=== PATIENT | female | born 1980 | race Caucasian/White ===

== ENCOUNTER 2022-04-17 08:47 | Emergency (ER) | payer OTHER, BC, SELFPAY ==
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
--- NOTE | ~2022-04-17 | CT_ITS ---
Noncontrast CT scan of the cervical spine Technique: Multiple contiguous axial [address] images of the cervical spine were obtained and rec onstructed in 2D sagittal and coronal planes on the acquisition scanner. Dose reduction technique was used on this scan by utilizing automated exposure control, adjustment of the mA and/or kV according to patient size. Clinical History: Pain Findings: No fractures or dislocations. Unremarkable visualized bony structures. The intervertebral disc spaces are preserved. No prevertebral soft tissue swelling. Impression: No fracture or subluxation of the cervical spine. Reviewed, dictated and finalized at location M. RUNNER Impression: No fracture or subluxation of the cervical spine.
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
[2022-04-17 08:52] VITALS: BP 154/89; PULSE 72; RESP 16; TEMP 37; O2SAT 98
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
[2022-04-17] MEDS: ACETAMINOPHEN 500 MG TABLET 1000 MG PO (10:23)
== END 2022-04-17 10:30 | disposition home or self-care (01) ==
PROVIDERS: Emergency Provider Physician Assistant; PCP Physician Assistant
DX: S16.1XXA Strain of muscle, fascia and tendon at neck level, initial encounter (principal); S63.601A Unspecified sprain of right thumb, initial encounter; F17.200 Nicotine dependence, unspecified, uncomplicated; V43.52XA Car driver injured in collision with other type car in traffic accident, initial encounter
CPT/HCPCS: 70450; 72125; 73090; 73130; 99284; A9270

== ENCOUNTER 2022-08-19 07:24 | Emergency (ER) | payer BC, SELFPAY ==
--- NOTE | ~2022-08-19 | CT_ITS ---
EXAMINATION: CT abdomen pelvis w con DATE: 08/19/2022 08:50 INDICATION: Right lower quadrant abdominal pain. TECHNIQUE: Computed tomography (CT) of the abdomen and pelvis was performed with 100 mL Omnipaque 350 intravenous contrast. Automated exposure control and iterative reconstruction technique were employe d. The dose-length product was 826.81 mGy-cm. COMPARISON: None. FINDINGS: The visualized portions of the lung bases demonstrate mild dependent atelectasis. No pleura l effusion. The heart size is normal. No pericardial effusion. There is a 10 mm cyst in the liver. Th e gallbladder, spleen, pancreas, and adrenal glands are normal. There is a delayed right-sided contra st nephrogram. There is mild right hydronephrosis and hydroureter. There is a 4 mm stone at right ure terovesicular junction. There is a 5 mm cyst in left kidney. There are no dilated loops of bowel. The appendix is normal. There are no pathologically enlarged lymph nodes. There is no free intraperitone al fluid. There is mild thoracolumbar spondylosis. IMPRESSION: 1. 4 mm stone at right ureterovesicular junction with mild right hydronephrosis and hydroureter. Reviewed, dictated and finalized at location A.
[2022-08-19 07:36] VITALS: BP 158/75; PULSE 76; RESP 16; TEMP 37.1; O2SAT 99
--- NOTE | 2022-08-19 07:55 | ED.ABDPAIN ---
HPI - Abdominal Pain General Chief Complaint: Urogenital-Female Stated Complaint: Possible Kidney stone Time Seen by Provider: 08/19/22 07:31 History of Present Illness HPI narrative: This is a 42-year-old female, who denies significant past medical history, presenting to the emergency department complaining of right-sided flank pain for the past day. She states yesterday after heavy lifting she developed right-sided flank pain migrating towards the abdomen. It is rated 7/10, cramping and sharp and constant. This is accompanied by frequent urination without blood. She denies fevers but complains of nausea and occasional nonbloody vomiting. Related Data Allergies Allergy/AdvReac Type Severity Reaction Status Date / Time latex Allergy Intermediate Rash Verified 08/19/22 07:26 codeine Allergy Mild Itching Verified 08/19/22 07:26 Review of Systems Review of Systems: CONSTITUTIONAL: Denies fever, chills, or sweats. EYES: Denies visual changes, redness, or discharge. ENT: Denies rhinorrhea, congestion, sore throat, or otalgia. CARDIOVASCULAR: Denies chest pain, palpitations, or edema. RESPIRATORY: Denies cough or dyspnea. GASTROINTESTINAL: Right-sided abdomen pain and ankle pain, nausea and vomiting denies diarrhea. GENITOURINARY: Increased urinary frequency denies dysuria or hematuria. SKIN: Denies rash or itching. MUSCULOSKELETAL: Denies back pain, joint pain, or myalgia. NEUROLOGIC: Denies headache, numbness, dizziness, or weakness. PSYCHIATRIC: Denies anxiety or depression. PMFSH Past Medical History Medical History No active medical problems Surgical History Surgical History History of History of endometrial ablation History of tubal ligation Social History Social History (Updated 08/19/22 @ 07:57 by Shabbir Hunter MD) Smoking status: Current every day smoker Alcohol intake: current Substance use: never Exam Narrative: GENERAL: Well-developed, well-nourished, appears uncomfortable HEAD: Normocephalic, atraumatic. EYES: PERRLA and EOMI. ENT: Nares clear, no rhinorrhea or epistaxis. Mucous membranes moist. Oropharynx without tonsillar hypertrophy exudate or other lesions. CHEST: Clear to auscultation. No respiratory distress. No wheezes rales or rhonchi HEART: Regular rate and rhythm. No murmur heard. Normal peripheral pulses. ABDOMEN: Soft, mild tenderness palpation in the right and mid quadrant without rebound or guarding, nondistended, normal active bowel sounds. Mild right CVA tenderness to palpation. No left CVA tenderness to palpation EXTREMITIES: Normal range of motion. No edema. SKIN: Warm, dry, no rash. NEURO: No focal deficits. Alert and oriented x3. PSYCH: Normal mood and affect. Course Course Emergency Course: 10:00 - Abdomen pelvis demonstrates a 4 mm right-sided stone at the UVJ with hydronephrosis. UA not concerning for urinary tract infection. Chemistries within normal limits. CBC demonstrates white blood cell elevation to 14.5 but is otherwise unremarkable. On reevaluation, the patient states her pain is improved. Will discharge with tamsulosin, pain medications and nausea medications. Discussed return and emergency precautions including signs/symptoms of acute abdomen. The patient voiced understanding and is comfortable with the plan. All questions answered to her satisfaction. Vital Signs Vital signs: Vital Signs Temperature 98.7 F 08/19/22 07:36 Pulse Rate 76 08/19/22 07:36 Respiratory Rate 16 08/19/22 07:36 Blood Pressure 158/75 H 08/19/22 07:36 Pulse Oximetry 99 08/19/22 07:36 Oxygen Delivery Room Air 08/19/22 07:36 Temperature 98.7 F 08/19/22 07:36 Pulse Rate 76 08/19/22 07:36 Respiratory Rate 16 08/19/22 07:36 Blood Pressure 158/75 H 08/19/22 07:36 Pulse Oximetry 99 08/19/22 07:36 Oxygen Delivery
[2022-08-19 07:58] LABS: Basophils Absolute Auto 0.1 K/mm3 (0.0-0.1); Basophils Percent Auto 0.3 % (0.2-1.2); Eosinophils Absolute Auto 0.1 K/mm3 (0-0.3); Eosinophils Percent Auto 0.8 % (0-4.4); Hematocrit 41.4 % (37.0-47.0); Hemoglobin 13.9 g/dL (12.0-15.0); Immature Granulocyte Absolute 0.07 K/mm3 (0.00-0.031); Immature Granulocyte Percent A 0.5 % (0-0.5); Lymphocytes Absolute Auto 1.79 K/mm3 (0.9-3.2); Lymphocytes Percent Auto 12.4 % (18.3-44.2); Mean Corpuscular HGB Conc 33.6 g/dl (32-36); Mean Corpuscular Hemoglobin 30.6 pg (26-34); Mean Corpuscular Volume 91.2 fl (80-100); Mean Platelet Volume 10.9 fl (7.4-10.4); Monocytes Absolute Auto 0.8 K/mm3 (0.1-0.6); Monocytes Percent Auto 5.2 % (2.6-8.5); Neutrophils Absolute Auto 11.7 K/mm3 (1.3-6.7); Neutrophils Percent Auto 80.8 % (45.5-73.1); Platelet Count Result 255 k/mm3 (150-375); Red Blood Count 4.54 M/mm3 (4.2-5.4); Red Cell Distribution Width 12.6 % (11.5-14.5); White Blood Count 14.5 K/mm3 (4.5-10.0)
[2022-08-19 08:04] LABS: Appearance Urine Clear (Clear); Bacteria Urine None Seen /hpf; Bilirubin Urine Negative (Negative); Blood Urine 2+ (Negative); Color Urine Yellow (Yellow); Glucose Urine UA Negative (Negative); Ketones Urine Negative (Negative); Leukocyte Esterase Ur Negative LEU/UL (Negative); Nitrate Urine Negative (Negative); Non Pathogenic Casts 0-2; Protein Urine Negative (Negative); RBC Urine 0-2 /hpf (0-2); Specific Grav Ur 1.012 (1.001-1.035); Squamous Epithelial Cell Urine Occasional /hpf (Few); Urobilinogen Urine 0.2 mg/dL (<2.0); WBC Urine 0-5 /hpf; pH Urine 5.5 (5.0-9.0)
[2022-08-19 08:10] LABS: Alanine Aminotransferase 20 U/L (6-35); Albumin Level 4.2 g/dL (3.5-5.1); Alkaline Phosphatase 65 U/L (38-126); Anion Gap 10 mmol/L (8-16); Aspartate Amino Transferase 25 U/L (14-36); Bilirubin,Total 0.5 mg/dL (0.2-1.3); Blood Urea Nitrogen 14 mg/dL (7-17); Calcium 8.1 mg/dL (8.4-10.2); Carbon Dioxide 19 mmol/L (22-30); Chloride 108 mmol/L (98-107); Estimated CRCL calculation 123 ml/min; Estimated Glomerular Filt Rate > 60; Glucose 111 mg/dL (65-110); Potassium 3.9 mmol/L (3.4-5.0); Sodium 137 mmol/L (137-145)
[2022-08-19] MEDS: MORPHINE SULFATE (*CRX) 4 MG/ML INJ IV PUSH (08:13)
[2022-08-19] MEDS: ONDANSETRON INJ 4 MG/2 ML VIAL IV PUSH ×2 (08:13→08:58)
[2022-08-19 08:14] LABS: Add Urine Microscopic? YES
[2022-08-19] MEDS: SODIUM CHLORIDE 0.9% IV 2,000 ML 999 ML IV CONT (08:14)
[2022-08-19] MEDS: diphenhydrAMINE HCl CAP 25 MG CAPSULE 50 MG PO (08:18)
[2022-08-19 08:33] LABS: Lipase 144 U/L (23-300)
[2022-08-19] MEDS: KETOROLAC 30 MG/ML VIAL (*BKC) IV PUSH (08:58)
[2022-08-19 10:21] VITALS: BP 125/82; PULSE 99; RESP 75
== END 2022-08-19 10:22 | disposition home or self-care (01) ==
PROVIDERS: Emergency Provider Preventive Medicine Aerospace Medicine; PCP Physician Assistant
DX: N20.1 Calculus of ureter (principal)
CPT/HCPCS: 36415; 74177; 80053; 81001; 83690; 85025; 96361; 96374; 96375; 96376; 99284; A9270; J1885; J2270; J2405; J7030; Q9967

== ENCOUNTER 2022-09-25 15:52 | Outpatient (CLI) | payer BC, SELFPAY ==
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
--- NOTE | 2022-09-26 07:19 | PCNEURO ---
Paper documentation exists on this patient due to [employer] downtime on 09/25/22 from to 00:30-19:30 .
== END 2022-09-25 15:53 | disposition home or self-care (01) ==
LOC: ANHNEURO 15:53
PROVIDERS: PCP Physician Assistant; Visit Provider Plastic Surgery
DX: R20.2 Paresthesia of skin (principal); G56.01 Carpal tunnel syndrome, right upper limb
CPT/HCPCS: 95909

== ENCOUNTER 2022-10-30 15:21 | Outpatient (CLI) | payer BC, SELFPAY ==
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
== END 2022-10-30 15:22 | disposition home or self-care (01) ==
PROVIDERS: PCP Physician Assistant; Visit Provider Plastic Surgery
DX: M19.031 Primary osteoarthritis, right wrist (principal)
CPT/HCPCS: 73110

== ENCOUNTER 2022-11-29 09:20 | Outpatient (CLI) | payer OTHER, SELFPAY ==
--- NOTE | 2022-11-29 09:30 | ECG_ITS ---
Measurements Intervals [place] Rate: 78 P: 56 OH: 182 QRS: 19 QRSD: 81 T: 20 QT: 379 QTc: 432 Interpretive Statements SINUS RHYTHM LOW QRS VOLTAGE IN PRECORDIAL LEADS [QRS DEFLECTION < 1.0 mV IN CHEST LEADS] OTHERWISE NORMAL ECG NO PREVIOUS ECG AVAILABLE FOR COMPARISON Electronically Signed On 11-29-2022 15:54:17 CDT by Oliver Zambrano M.D.
[2022-11-29 09:57] LABS: Hematocrit 44.2 % (37.0-47.0); Hemoglobin 14.4 g/dL (12.0-15.0)
== END 2022-11-29 09:21 | disposition home or self-care (01) ==
LOC: ANHSURGERY 09:24
PROVIDERS: Anesthesiology; PCP Physician Assistant; Visit Provider Surgery Plastic and Reconstructive Surgery
DX: L57.4 Cutis laxa senilis (principal); Z01.818 Encounter for other preprocedural examination
CPT/HCPCS: 36415; 85014; 85018; 93005

== ENCOUNTER 2022-12-03 03:23 | Day surgery (SDC) | payer OTHER, SELFPAY ==
[2022-11-26 14:31] VITALS: BMI 29.2
--- NOTE | 2022-11-26 14:31 | PC.NURSE ---
Report to the Outpatient Waiting Room, entrance under the green pavilion located off [facility], at time _0600_ on date _[id number]_. Planned Procedure Time: _0730_. Time changes happen often and if your time is changed the preop area will call you the afternoon before. - You and your visitor will be asked to self-screen and do not enter if you have any COVID symptoms. - A mask is optional within the hospital at this time. Patients may have clear liquids (water, carbonated beverages, clear teas, apple juice) until 3 hours prior to surgery with a maximum of 20 ounces. - No food from midnight until time of surgery Take the following medications with a SIP of water the morning of surgery: ___None DO NOT STOP ANY OF YOUR OTHER PRESCRIPTION MEDICATIONS PRIOR TO SURGERY ?EXCEPT THE FOLLOWING Medications to discontinue per physician None Date to take last dose Please no make-up, nail st helenian, hairspray, perfume, deodorant, or body powder the day of surgery. No jewelry (including any body piercings) or valuables the day of surgery, leave them at home. Please take a shower or bath the night before, or the morning of, surgery with an antibacterial soap. Wear comfortable, loose fitting clothing. - Jewelry must be removed prior to entering the operating room. Rings and piercings that are not removed may be cut off. - The hospital will not accept responsibility for valuables. - Please leave all valuables, including medications, at home the day of surgery. If you are going home after surgery, a licensed forklift driver must drive you home. - NO public transportation without another adult if you receive anesthesia. - We recommend that an adult stay with you for 24 hours following discharge. - We also recommend that you do not drive, make important decision, drink alcoholic beverages, or take any drugs that were not prescribed by your health care provider for at least 24 hours after your discharge time. Follow any additional instructions given to you from your surgeon. If you or anyone in your household have experienced Covid symptoms in the past week, please notify your surgeon or the nurse liaison at the phone number below for possible testing. Telephone instructions given to __Patient___and asked if any additional questions and then verbalized understanding. Patient advised to call surgeon office or pre surgery nurse liaison [phone] if any additional questions.
[2022-12-03] VITALS (10 sets, daily range): BP systolic 125–170; BP diastolic 70–98; PULSE 81–106; RESP 14–20; TEMP 36.2–37.8; O2SAT 95–100
[2022-12-03 06:44] LABS: Urine Cotinine NEGATIVE
--- NOTE | 2022-12-03 06:52 | P.PNAN_ITS ---
Anes - Initial Pre Proc Eval Procedure: Operation Date: 12/03/22 07:30 Proposed Procedures p Abdominoplasty with Liposuction - Tripp Chakraborty MD s Bilateral Breast Mastopexy with Galaflex - Tripp Chakraborty MD s Fat Grafting to Bilateral Breast and Bilateral Hips - Tripp Chakraborty MD Date/Time: 12/03/22 06:52 Surgeon: Tripp Chakraborty MD Pre Op Diagnosis: skin laxity, breast ptosis Patient Data Age: 42 Gender: F Height: 1.74 m Weight: 88.6 kg Allergies Allergy/AdvReac Type Severity Reaction Status Date / Time latex Allergy Intermediate Rash Verified 11/26/22 14:18 tramadol Allergy Intermediate Itching Verified 11/26/22 14:18 codeine Allergy Mild Itching Verified 11/26/22 14:18 Home Medications Medication Instructions Recorded Confirmed Type cyclobenzaprine 10 mg tablet 10 mg PO TID PRN muscle spasm #14 04/17/22 11/26/22 Rx tabs oxycodone-acetaminophen 5 mg-325 1 tablet PO Q8H PRN pain, severe 08/19/22 11/26/22 Rx mg tablet (Endocet) #9 tabs Laboratory Tests 12/03/22 06:24 Cotinine Negative Patient hx anesthesia problems: none Family hx anesthesia problems: none Results Review: All pre-operative results and documents have been reviewed as part of the pre- operative evaluation. [facility] Past Medical History Medical History No active medical problems Surgical History Surgical History History of History of endometrial ablation History of tubal ligation Social History Social History Smoking packs per day: 0.5 Smoking cigarettes per day: 10.0 Years smoked: 6 Smoking pack-years: 3.00 Smoking status: Former smoker Tobacco type: cigarettes Smoking end date: 11/05/22 Alcohol intake: current Substance use: never Living arrangements: with family Spiritual care concerns: No Anes - Eval Final PreProcedure Day of Procedure 12/03/22 06:52 Patient weight: overweight Heart: regular rate and rhythm Lungs: clear to auscultation Airway: Mallampati scale class II Neurological: alert and oriented Last oral intake: >/= 8 hours ASA classification: II Emergent: no Anesthetic plan: proceed Anesthesia type and monitoring: general ETT and standard monitoring Results Review: All pre-operative results and documents have been reviewed as part of the pre- operative evaluation. Informed Consent: The patient's anesthetic plan and its attendant risks and benefits were discussed with the patient/family/POA. Questions were solicited and answers provided to the satisfaction of the patient/family/POA.
[2022-12-03] MEDS: LACTATED RINGERS 1,000 ML 30 ML IV CONT ×2 (07:00→15:23)
--- NOTE | 2022-12-03 07:23 | WPDHPUPDATE1 ---
History and Physical Update Update Date/Time: 12/03/22 07:23 History and Physical has been reviewed, including an updated exam of the patient. There are NO changes in the patient's condition. Risks, benefits, and alternatives have been discussed and questions answered. Patient agrees to proceed with procedure.
--- NOTE | 2022-12-03 07:24 | W.PM.PROC2 ---
Procedure Note - Detailed Date of Procedure 12/03/22 Pre-op Diagnosis skin laxity, breast ptosis Post-op Diagnosis Same Procedure Performed 1. Bilateral breast mastopexy with Galaflex 2. Bilateral breast fat grafting 3. Progressive tension abdominoplasty with suction lipectomy 4. Bilateral hip fat grafting (hip dips) Surgeon Tripp Chakraborty MD Anesthesia General Findings Abdominal tissue removed: 1739 grams Lipoaspirate: 3250 cc Bilateral breast fat graftincc / side (500cc total volume) Bilateral hip dip fat graftincc / side (300cc total volume) Galaflex REF# [id number] Description of Procedure They are here today for the above. Previously and again today the risks, benefits, alternatives were discussed in extensive detail. I wanted them to be very realistic about the risks involved as well as expectations. Discussed visceral adiposity and limitations. We discussed aftercare and what to monitor for. I was very upfront about the risks of wound breakdown leading to loss of skin, open wounds, and need for additional procedures with permanent abdominal deformity. We discussed DVT/PE risks and management. Made sure answered all of their questions to their satisfaction today and consent was obtained. They were marked in the preoperative holding area with their verification. The patient was taken to the operating room. Anesthesia was provided by anesthesiology. A Griffiths catheter was started. Placed prone with care taken to protect from injury. They were prepped and draped in a standard sterile fashion. A surgical time-out was taken. Liposuction / Fat harvest Stab incisions were made and tumescent was utilized. Once adequate time for hemostasis suction lipectomy was completed with a 3mm multihole fat grafting cannula to a gravity seperation device. S.A.F.E. technique equalized with 5mm basket cannula. Port sites closed with 4-0 Nylon. Patient turned supine with care taken to protect from injury. Prepped and draped in a standard sterile fashion. I placed the patient in a flexed position to verify the upper and lower markings would reach. I then placed supine. A thorough abdominal examination was completed. Stab incisions were made and tumescent solution infiltrated. Once adequate time was allowed for hemostasis a 3mm multi hole suction cannula was utilized to a gravity separation canister. 5mm basket cannula was utilized to complete suction lipectomy based on S.A.F.E. technique in multiple planes and passes. Mastopexy Eleven blade was utilized to make a stab incision and infiltrated with low volume tumescent solution. The breast was tailor tacked into place. I tailor tacked the breast into position. Placed her in a sitting position. Verified the nipple-areolar location based on preoperative planning as well as intraoperative observations and measurements in full agreement. She was placed supine. I de-epithelialized the pedicle. I then de-epithelialized the inferior breast tissue to create an autoaugmentation flap based on intercostal marketing professional. I elevated medial and lateral tissue flaps as well for planned closure. The autoaugmentation flap was sutured to the chest wall with 2-0 PDS and tailor tacked into place. Fat grafting was completed with 3mm cannula using a closed system in multiple plans and passes based on preoperative planning in a sitting position to volumes above. Next, Galaflex had been soaking on the back table in a betadine solution. Trimmed and sutured into place with 3-0 Vicryl. I closed along the IMF with 2-0 Stratafix. Along the vertical with 2-0 PDS. I closed around the Handy with 3-0 strata fix. 3-0 Monocryl along the vertical. 3-0 Stratafix along the IMF. I finally closed everything with running subcuticular 4-0 Monocryl and tissue glue. Abdomen A 10 blade was used to make the upper incision. I continued dissection down to the level of fascia. Elevated just what wa
[2022-12-03] MEDS: ceFAZolin 2 GM/D5W 50 ML 2 GM/50 ML BAG IVPB (07:27)
[2022-12-03] MEDS: TRANEXAMIC ACID 1,000MG/ISO100 1,000 MG/100 ML BAG 200 MG IVPB (07:43)
[2022-12-03] MEDS: NACL 0.9% IRRIG POUR BOTTLE 900 ML, GENTAMICIN SULFATE INJ 160 MG, ceFAZolin 2 GM, POVI... IRRIGATION (11:20)
[2022-12-03] MEDS: LACTATED RINGERS IRRIG 1,000 ML, LIDOCAINE HCL 1% LOCAL INJ 50 ML, EPINEPHrine HCL INJ ... INFILTRATE ×2 (11:22)
[2022-12-03] MEDS: ceFAZolin SODIUM 1 GM VIAL IV PUSH ×2 (11:27→13:00)
[2022-12-03] MEDS: LIDOCAINE/EPINEPHRINE 0.5%/1:200,000 50 ML VIAL 60 ML INFILTRATE (14:00)
[2022-12-03] MEDS: fentaNYL CITRATE INJ (*CRX) 100 MCG/2 ML VIAL 25 MCG IV PUSH ×6 (16:03→16:30)
--- NOTE | 2022-12-03 16:52 | PC.NURSE ---
This patient, Nusrat Berman, was received from PACU on 12/03/22 at 1652. Patient/family oriented to unit policies and routines
[2022-12-03] MEDS: LACTATED RINGERS 1,000 ML 125 ML IV CONT (17:18)
[2022-12-03] MEDS: MORPHINE SULFATE (*CRX) 2 MG/ML INJ IV PUSH (17:19)
[2022-12-03] MEDS: carisoprodoL (*CRX) 350 MG TABLET PO ×2 (18:19→23:54)
[2022-12-03] MEDS: KETOROLAC 10 MG TABLET PO ×2 (18:20→23:54)
[2022-12-03] MEDS: ONDANSETRON INJ 4 MG/2 ML VIAL IV PUSH (18:50)
[2022-12-03] MEDS: DOCUSATE SODIUM 100 MG CAPSULE PO (20:20)
[2022-12-03] MEDS: oxyCODONE/ACETAMINOPHEN (*CRX) 5-325 MG TABLET PO (20:23)
[2022-12-03] MEDS: ENOXAPARIN 40 MG/0.4 ML SYRINGE SUB-Q (20:23)
[2022-12-04 01:00] VITALS: BP 119/67; PULSE 92; RESP 20; TEMP 37.3
[2022-12-04] MEDS: diazePAM (*CRX) 5 MG TABLET PO (01:42)
[2022-12-04] MEDS: carisoprodoL (*CRX) 350 MG TABLET PO (05:37)
[2022-12-04 05:40] VITALS: BP 115/77; PULSE 109; RESP 18; TEMP 37
[2022-12-04] MEDS: KETOROLAC 10 MG TABLET PO (05:44)
--- NOTE | 2022-12-04 06:58 | WPDPN ---
Progress Note: A&P Assessment and Plan (1) Breast ptosis: Code(s): N64.81 - Ptosis of breast Status: Acute Assessment and Plan: Doing well. Will discharge home. Follow-up. Call with any questions or concerns. Today we had a lengthy discussion about the care. What to monitor for. Activity limitations. What is an emergency and when to proceed to the ER/dial 911. Call with all other questions or concerns. Will see her back. (2) Micromastia: Code(s): N64.82 - Hypoplasia of breast Status: Acute (3) Skin laxity: Code(s): L57.4 - Cutis laxa senilis Status: Acute (4) Localized adiposity: Code(s): E65 - Localized adiposity Status: Acute (5) Numbness of left hand: Code(s): R20.0 - Anesthesia of skin Status: Acute Assessment and Plan: Discussed management. ROM activities. What to monitor for. She is going to keep us updated. Subjective Date/time seen: 12/04/22 06:58 Interval history: Doing well after bilateral mastopexy with galaflex and fat grafting, progressive tension abdominoplasty with suction lipectomy, fat grafting hips. Ambulating. Pain controlled. No nausea / vomiting. No fevers / chills. No shortness of breast. No chest pain. No calf tenderness. She has a history of Right CTS and woke up with left hand numbness in all digits. Able to move without difficulty. Review of Systems Review of Systems: All systems reviewed & are unremarkable except as noted in HPI and below Exam Narrative: Alert & Oriented NOD Respiratory unlabored Bilateral breasts healing well. No signs of infection. No hematoma. No seroma. Good color and capillary refill. Abdomen is healing well. No signs of infection. No hematoma. No seroma. Good color and capillary refill. Left hand with numbness to light touch in all digits. 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 Full shoulder, elbow, hand, digit ROM. No calf tenderness. Negative Shanice's Objective Data Vital Signs Vital Signs: Vital Signs - 24 hr 12/03/22 07:34 12/03/22 15:23 12/03/22 15:35 Temperature 36.2 C L 36.7 C Pulse Rate 81 85 85 Respiratory Rate 14 18 18 Blood Pressure 141/82 H 125/85 130/86 Pulse Oximetry 100 100 100 Oxygen Delivery Room Air Simple Face Mask Simple Face Mask Oxygen Flow Rate 8 8 12/03/22 15:50 12/03/22 16:05 12/03/22 16:20 Temperature Pulse Rate 96 98 106 H Respiratory Rate 18 16 16 Blood Pressure 164/98 H 159/93 H 170/80 H Pulse Oximetry 100 96 97 Oxygen Delivery Simple Face Mask Room Air Room Air Oxygen Flow Rate 8 12/03/22 16:35 12/03/22 16:45 12/03/22 16:55 Temperature 37.1 C Pulse Rate 104 H 100 104 H Respiratory Rate 14 16 16 Blood Pressure 155/73 H 150/70 H 133/90 Pulse Oximetry 97 97 95 Oxygen Delivery Room Air Room Air Oxygen Flow Rate 12/03/22 16:52 12/03/22 20:20 12/04/22 01:00 Temperature 37.8 C H 37.3 C Pulse Rate 104 H 92 Respiratory Rate 20 20 Blood Pressure 142/93 H 119/67 Pulse Oximetry Oxygen Delivery Room Air Oxygen Flow Rate 12/04/22 05:40 Temperature 37.0 C Pulse Rate 109 H Respiratory Rate 18 Blood Pressure 115/77 Pulse Oximetry Oxygen Delivery Oxygen Flow Rate Intake/Output Intake/Output: Intake & Output 12/01/22 12/02/22 12/03/22 12/04/22 23:59 23:59 23:59 23:59 Intake Total 690 1800 Output Total 130 1010 Balance 560 790 Meds/Results Medications: Active Medications Generic Name Dose Route Start Last Admin Trade Name Freq PRN Reason Stop Dose Admin Carisoprodol 350 mg 12/03/22 18:00 12/04/22 05:37 Carisoprodol (*Crx) 350 Mg Tablet PO 350 mg Q6HR JOSE L Administration Diazepam 5 mg 12/03/22 15:00 12/04/22 01:42 Diazepam (*Crx) 5 Mg Tablet PO 5 mg TID PRN Administration Anxiety Docusate Sodium 100 mg 12/03/22 21:00 12/03/22 20:20 Docusate Sodium 100 Mg Capsule PO 100 mg Q12HR JOSE L Administration Enoxaparin Sodium 40 mg 08
--- NOTE | 2022-12-04 07:01 | P.DS_ITS ---
DS: Admitting Diagnosis Discharge Date 12/04/2022 Admitting Diagnosis 1. Breast ptosis 2. Micromastia 3. Skin laxity 4. Localized adiposity DS: Discharge Diagnosis Discharge Diagnosis (1) Breast ptosis: Code(s): N64.81 - Ptosis of breast Status: Acute (2) Micromastia: Code(s): N64.82 - Hypoplasia of breast Status: Acute (3) Skin laxity: Code(s): L57.4 - Cutis laxa senilis Status: Acute (4) Localized adiposity: Code(s): E65 - Localized adiposity Status: Acute (5) Numbness of left hand: Code(s): R20.0 - Anesthesia of skin Status: Acute DS: Summary Hospital Course Hospital Course: She has a history of right CTS; however, awoke with left hand numbness. 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 Otherwise doing well after bilateral mastopexy with galaflex and fat grafting, progressive tension abdominoplasty with suction lipectomy, fat grafting to hips. Will discharge home. Will follow numbness closely. Advised to discuss with PCP as well. Time Spent with Patient Time attestation: Total time spent providing and/or coordinating discharge services: Exam Narrative: Alert & Oriented NOD Respiratory unlabored Bilateral breasts healing well. No signs of infection. No hematoma. No seroma. Good color and capillary refill. Abdomen is healing well. No signs of infection. No hematoma. No seroma. Good color and capillary refill. No calf tenderness. Negative Shanice's Discharge Plan Discharge Patient Disposition: Home, Self-Care Discharge Instructions: POST OPERATIVE DISCHARGE INSTRUCTIONS TRIPP CHAKRABORTY M.D. [facility] [address] [place] [address] * No driving for 24 hours after anesthesia and while you are taking pain medication. * Take all prescribed medication as directed * Diet as tolerated. * No lifting or activity that raises blood pressure for 48 hours. * Regular walking / ambulation. * May shower 24 hours after surgery. Once you shower do not take pain medication before showering as the combination of medication and heat may cause you to feel dizzy or pass out. * No pools or tubs for 2 weeks. * Slowly stand up straight as tolerated. * No straining or lifting more than 20 pounds. * If no bowel movement within 24 hours may use laxative. * Call with any questions or concerns. * Dressing Care: Continue abdominal binder / foam 23 hours per day. If you have any questions or concerns, please call the office . If it is after hours you will be directed to the consumer sales representative exchange. Shortness of breath, chest pain, or other medical emergency dial 911 / proceed to the Emergency Room. Stand Alone Forms: General Discharge Instructions Follow-up/Referrals: Tripp Chakraborty MD [Physician] - 1 Week Discharge Medications: Held cyclobenzaprine 10 mg tablet 10 mg PO TID PRN (Reason: muscle spasm) Qty: 14 0RF Hold Instructions: Resume on 01/12/23. oxycodone-acetaminophen [Endocet] 5-325 mg tablet 1 tablet PO Q8H PRN (Reason: pain, severe) Qty: 9 0RF Hold Instructions: Resume on 01/12/23.
[2022-12-04] MEDS: oxyCODONE/ACETAMINOPHEN (*CRX) 5-325 MG TABLET PO (07:41)
[2022-12-04] MEDS: DOCUSATE SODIUM 100 MG CAPSULE PO (07:41)
[2022-12-04 08:10] VITALS: BP 116/55; PULSE 97; RESP 16; TEMP 37.6; O2SAT 98
[2022-12-04 09:43] VITALS: TEMP 36.9
--- NOTE | 2022-12-05 05:54 | P.PNAN_ITS ---
Anes - Prog Note Post-Op Date/Time: 12/05/22 05:54 Cardiovascular status: normal Respiratory status: normal Airway patency: baseline Mental status: baseline Post-Op hydration status: normal Vital Signs: Last Vital Signs Temp 98.5 F 12/04/22 09:43 Pulse 97 12/04/22 08:10 Resp 16 12/04/22 08:10 BP 116/55 L 12/04/22 08:10 Pulse Ox 98 12/04/22 08:10 O2 Del Method Room Air 12/04/22 08:00 O2 Flow Rate 8 12/03/22 15:50 Pain Score (VAS): abdominal pain 5 I/O: Intake & Output 12/04/22 12/04/22 12/05/22 15:59 23:59 07:59 Output Total 150 Balance -150 Post-procedural complaints: none Patient Feedback: Patient satisfied with anesthetic care. Other Findings: Saw pt on 12/04/22 in am for post op follow up. Pt c/o left arm discomfort. States feels like tennis elbow and hand numb feeling. Pt presently has arm elevated on pillow. Arm appears slightly swollen. Fingers warm to touch with palpable pulse. 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 Able to lift arm up with no apparent limitations. B/P taken on that arm. IV right forearm and hx Carpal tunnel on right per pt in preop. Informed pt long procedure but arms were padded and checked frequently due to position changes and secured with no issues noted. Discussed with Dr Carrillo after seeing pt and returned with recommendations. Keep arm elevated some, gentle movement of arm up and down and squeeze hand, update Dr Hardy and he will let us know and follow up with primary if needed. If worsens call Dr Chakraborty or primary for follow up. Dr Chakraborty will let us know. Dr Chakraborty in room seeing pt and aware.
== END 2022-12-04 10:25 | disposition home or self-care (01) ==
LOC: ANHSURGERY 15:04 → ANHOB2 17:08
PROVIDERS: PCP Physician Assistant; Visit Provider Surgery Plastic and Reconstructive Surgery
PROC: (CPT 19316; principal; 2022-12-03 07:30)
PROC: (CPT 19316; 2022-12-03 07:30)
PROC: (CPT 15769; 2022-12-03 07:30)
DX: Z41.1 Encounter for cosmetic surgery (principal); R20.0 Anesthesia of skin; L57.4 Cutis laxa senilis; N64.81 Ptosis of breast; N64.82 Hypoplasia of breast; E65 Localized adiposity; Z87.891 Personal history of nicotine dependence
CPT/HCPCS: 19316; 15777 ×2; 15771 ×2; 15772 ×14; 15830; 15847; 80307; 99199; A9270; J0171; J0690; J1100; J1170; J1580; J1650; J2250; J2270; J2405; J2704; J3010; J7120

== ENCOUNTER 2024-06-30 10:03 | Outpatient (CLI) | payer BC, SELFPAY ==
--- NOTE | ~2024-06-30 | MM_ITS ---
EXAMINATION: MM screening charanjit BI w osmar HISTORY: Screening TECHNIQUE: Craniocaudal and mediolateral oblique 3-D tomosynthesis images were obtained and synthetic 2-D images were generated. CAD analysis was submitted and interpreted. COMPARISON: No prior mammogram is available for comparison at this institution. BREAST PARENCHYMAL COMPOSITION: Dense: The breasts are heterogeneously dense, which may obscure small masses FINDINGS: There are asymmetries laterally in both breasts. On CC view There is also asymmetry inferio rly in the right breast on MLO view. There are no suspicious calcifications or architectural distorti on. IMPRESSION: 1. Bilateral breast asymmetries. 2. Recommend comparison to previous outside mammograms. BI-RADS Category 0: Incomplete: Needs additional imaging evaluation. Reviewed, dictated and finalized at location B.
--- OUTSIDE RECORDS SUMMARY | 2024-06-30 11:22 | XMS_ITS | Clinical Summary ---
Author Organization [facility] Address [address] [place] [address] Care Team Providers Care Rate And Cost Analyst Name Role Phone Renata Cadet Primary Care Pr ovider Allergies Active Allergy Reactions Criticality Noted Date Comments Codeine Itching,Shortness of breath,Swelling High 04/20/2020 Latex Itching,Swelling Medium 05/12/2020 Medications omega [id number]-fish oil (Fish Oil) 1,000 mg (120 mg-180 mg) capsule Take 1 capsule by mouth every morning Active CALCIUM ORAL Take 1 tablet by mouth nightly Active vit A/vit C/biotin/zinc/c opper ([id number] ,VIT A,C-BIOTIN, ORAL) Take 1 tablet by mouth every morning Active cholecalciferol (Vitamin D3) 400 unit capsule Take 400 Units by mouth every morning Active Active Problems Problem Noted Date Diagnosed Date Plantar fasciitis 04/21/2020 Right calcaneal bursitis 04/21/2020 Surgical History Surgery Date Site/Laterality Comments SECTION HYSTEROSCOPY W/ ENDOMETRIAL ABLATION WISDOM TOOTH EXTRACTION Medical History Medical History Date Comments Hypertension Plantar fasciitis of right foot Family History Medical History Relation Name Comments Hypertension Father Heart disease Maternal Grandfather Stroke Maternal Grandmother Anesthesia problems Neg Hx Relation Name Status Comments Father Maternal Grandfather Maternal Grandmother Social History Tobacco Use Types Packs/Day Years Used Date Smoking Tobacco: Former Cigarettes 0.5 21.4 1 999 - 09/01/2019 Smokeless Tobacco: Never AUDIT-C Answer Date Recorded Q1: How often do you have a drink containing alc ohol? 2-4 times a month 09/05/2020 Q2: How many drinks containi ng alcohol do you have on a typical day when you are drinking? 1 or 2 09/05/2020 Q3: How often do you have si x or more drinks on one occasion? 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 Gender Identity Not on file Sexual Orientation Not on file Obstetrics History Last Filed Vital Signs Vital Sign Reading Time Taken Comments Blood Pressure 126/92 09/05/2020 9:40 AM CDT Pulse 68 09/05/2020 9:30 AM CDT Temperature - - Respiratory Rate 18 09/05/2020 9:30 AM CDT Oxygen Saturation 99% 09/05/2020 9:30 AM CDT Inhaled Oxygen Concentration - - Weight 87.5 kg (193 lb) 09/28/2020 10:33 AM CDT Height 175.3 cm (5' 9 ) 09/28/2020 10:33 AM CDT Body Mass Index 28.5 09/28/2020 10:33 AM CDT Plan of Treatment Not on file Insurance [facility] Care Teams Rate And Cost Analyst Relationship Specialty Start Date End Date Renata Cadet PA PCP - General Physician Prize Fighter 04/18/20
--- OUTSIDE RECORDS SUMMARY | 2024-06-30 11:22 | XMS_ITS | Data Portability ---
Author Organization [facility] Address [address] [place] [address] Care Team Providers Care Flake Miller Helper Name Role Phone CULLEN QUINONES Primary Care Provider Unavailab le Assessment No assessment recorded. Plan of Treatment Reminders Order Date Submit Date Provider Last Modified By Organization Details Last Modified Time Details Appointments None recorded. Lab TSH + free T4, serum 2024 025 [email or web address], [address], [place], [address], 5 15:44:43 CMP, serum or plasma 2024 025 [employer] [facility], [address], [place], [address], 5 15:44:42 CBC w/ auto diff 2024 025 [employer] [facility], [address], [place], [address], 5 15:44:43 vitamin B12 + folate, serum or blood 2024 025 [facility], [address] [place], [address], 5 15:44:43 magnesium, serum or plasma 2024 025 [facility], [address] [place], [address], 5 15:44:43 lipid panel, serum 2024 025 [facility], [address], [place], [address], 5 15:44:43 vitamin D, 25-hydroxy , total, serum 2024 025 [facility], [address], [place], [address], 5 15:44:43 HbA1c (hemoglobi n A1c), blood 2024 025 [facility], [address], [place], [address], 5 15:44:42 insulin, serum 2024 025 [facility], [address], [place], [address], 5 15:44:42 Referral None recorded. Procedures colonoscop y screening (PROC) [email or web address] [place] [address] [facility], [address], [address], [place], [address], 5 10:58:21 Surgeries None recorded. Imaging MAMMO, screening, digital, bilateral [email or web address] [place] [address] Radiology, [address] [facility], [place], [address], 5 11:24:53 Medication Orders Medrol (Roderick) 4 mg tablets in a dose pack 2024 025 [facility], [address], [place], [address], 5 10:57:44 prednisone 20 mg tablet 2023 025 [facility], [address] [place], [address], 5 10:32:02 cefdinir 300 mg capsule 2023 025 [facility] [address], [address] [place], [address], 10:39:20 Patient TargetsNo targets recorded. Patient Instructions Encounter Date Encounter Id Patient Instructions Last Modified By Organization Details Last Modified Time 06/07/2024 [id number] A healthy lifestyle: care instructions [email or web address] Not available 06/07/2024 10:57:20 Reason for Referral None Reported. Results Created Date Observation Date Name Description Value Unit Range Abnormal Flag Note LastModifiedBy Organization Detail LastModifiedTime 06/19/1901/16/2021 MAMMO , scree alivia, bilat eral No observ ation record ed. [email or web address] [facility] [address] [place], [address], 06/22/2023 17:29:36 06/26/1905/23/2023 MAMMO , scree alivia, bilat eral No observ ation record ed. [email or web address] [facility] [address] [place], [address], 07/15/2023 13:44:51 07/01/1905/23/2023 MAMMO , scree alivia, digit al, bilat eral No observ ation record ed. [email or web address] [facility] [address] [place], [address], 07/24/2023 16:13:56 Result Notes None recorded. Problems Name Problem SNOMED Code Status Onset Date Resolution Date Notes Provider Name and Address Organization Details Recorded Time Body mass index 30+ - obesity 547157892 Active 025 Willam Riley MA [facility], [place] - [place] 10:33:59 Obesity 586936101 Active 025 OZZY Prince Attn: Accounting ,[address] [facility] [facility], [place], [address] , [facility] 00:06:18 Problem Notes None recorded. Procedures Surgical History Date Name Laterality Status Provider Name and Address Organization Details Recorded Time ligation of bilateral fallopian tubes completed Willam Riley [place] 06/18/2023 12:01:10 Breast Surgery completed Willam Riley [place] 06/18/2023 12:01:17 section completed Willam Riley [place] 06/18/2023 12:01:22 Imaging Results Imaging Date Name Status LastModified by Organiz ation Details LastModified Time 01/16/2021 MAMMO, screening, bilateral completed [email or web address] [facility] [address] [place], [address], 06/22/2023 17:29:36 05/23/2023 MAMMO, screening, bilateral completed [email or web address] [facility] [address] [place], [address], 07/15/2023 13:44:51 05/23/2023 MAMMO, screening, digital, bilateral completed [email or web address] [facility] [address] [place], [address], 07/24/2023 16:13:56 Procedure Notes None recorded. Medical Equipment None Reported. Allergies Allergen ID Allergen Name Allergen Category Reaction Reaction Severity Criticality Documentation Date Start Date Code Code System Note Provider Name and Address Organization Details Recorded Time 333670 codeine medicatio n Not available Not available Not available 06/18/2023 2670 RxNorm Not Available Not Available Not Available 409264 tramadol medicatio n Not available Not available Not available 06/18/2023 31141 RxNorm Not Available Not Available Not Available 093091 latex environme nt,medica tion Not available Not available Not available 06/18/2023 80647 91 RxNorm Not Available Not Available Not Available Medications Name Sig Start Date Stop Date Status Note LastModified by Organization Details LastModified Time carisoprodo l 350 mg tablet TAKE 1 TABLET BY MOUTH EVERY 8 HOURS NEEDED FOR PAIN FOR MUSCLE SPASM 06/07 completed Not Available Not Available Not Available doxycycline hyclate 100 mg capsule Take 1 capsule twice a day by oral route with meal(s). 2024 active Not Available Not Available Not Avai lable triamcinolo ne acetonide 0.5 % topical cream APPLY A THIN LAYER TO THE AFFECTED AREA(S) of rash on body BY TOPICAL ROUTE 2 TIMES PER DAY 2024 active Not Available Not Available Not Avai lable ibuprofen 800 mg tablet TAKE 1 TABLET BY MOUTH EVERY 8 HOURS NEEDED FOR PAIN/SWEL LING active Not Available Not Available No t Available ondansetron HCl 4 mg tablet TAKE 1 TABLET BY MOUTH EVERY 6 HOURS NEEDED FOR NAUSEA 06/07 completed Not Available Not Available Not Available prednisone 20 mg tablet TAKE 2 TABLETS BY MOUTH ONCE DAILY FOR 5 DAYS 06/07 completed Not Available Not Available Not Available oxycodone-a cetaminophe n 5 mg-325 mg tablet TAKE 1 TABLET BY MOUTH EVERY 6 HOURS NEEDED FOR PAIN 06/07 completed Not Available Not Available Not Available amoxicillin 875 mg tablet TAKE 1 TABLET BY MOUTH EVERY 12 HOURS 06/07 completed Not Available Not Available Not Available alprazolam 0.25 mg tablet TAKE 1 TABLET BY MOUTH THREE TIMES DAILY NEEDED 06/07 completed Not Available Not Available Not Available tamsulosin 0.4 mg capsule TAKE 1 CAPSULE BY MOUTH ONCE DAILY 06/07 completed Not Available Not Available Not Available tacrolimus 0.1 % topical ointment APPLY OINTMENT EXTERNALL Y TWICE DAILY TO AFFECTED AREAS BY EYE AND UNDER BREAST. 06/07 completed Not Available Not Available Not Available methylpredn isolone 4 mg tablets in a dose pack TAKE BY MOUTH DIRECTED ON INSIDE OF PACKAGE active Not Available Not Available No t Available cefdinir 300 mg capsule Take 1 capsule every 12 hours by oral route. 06/07 completed Not Available Not Available Not Available Vitals Date Recorded Body weight Heart rate Respiratory rate Oxygen saturation Oxygen saturation in Arterial blood by Pulse oximetry Body mass index (BMI) Body height Systolic blood pressure Diastolic blood pressure Systolic blood pressure Diastolic blood pressure Provider Name and Address Organization Details Last Updated DateTime 4 52427.6 6 g 94 /min 18 /min 98 % 98 % 30.3 kg/m2 173.99 cm 144 mm[Hg] 10 mm[Hg] 166 mm[Hg] 105 mm[Hg] Willam Riley MA [place] 4 11:28:22 Date Recorded Systolic blood pressure Diastolic blood pressure Systolic blood pressure Diastolic blood pressure Provider Name and Address Organization Details Last Updated DateTime 06/18/2023 142 mm[Hg] 90 mm[Hg] 140 mm[Hg] 92 mm[Hg] OZZY Prince Attn: Accounting ,[address] [place], [address] , [facility] 4 11:42:01 Date Recorded Body height Body mass index (BMI) Body weight Oxygen saturation Oxygen saturation in Arterial blood by Pulse oximetry Heart rate Systolic blood pressure Diastolic blood pressure Provider Name and Address Organization Details Last Updated DateTime 173.99 cm 30.3 kg/m2 08488.6 6 g 98 % 98 % 100 /min 146 mm[Hg] 82 mm[Hg] Willam Riley MA [place] [facility] 5 10:37:07 Date Recorded Respiratory rate Systolic blood pressure Diastolic blood pressure Provider Name and Address Organization Details Last Updated DateTime 06/07/2024 18 /min 144 mm[Hg] 80 mm[Hg] OZZY Prince Attn: Accounting, [address] [place], [address], [place] 06/07/2024 10:58:35 Social History Question Answer Notes LastModified by Organizat ion Details LastModified Time Tobacco Smoking Status Former Smoker Pt. States that she has been strong. Willam Riley MA null, [facility] 06/07/2024 10:32:39 What Is Your Level Of Alcohol Consumption? Occasional Socially, Wine Information not available 06/18/2023 Are You Blind Or Do You Have Difficulty Seeing? No Information not available 06/18/2023 What Is Your Level Of Caffeine Consumption? Heavy Everyday [place]fee Daily Information not available 06/18/2023 In The 14 Days Before Symptom Onset, Have You Had Close Contact With A Laboratory-confi rmed COVID-19 While That Case Was Ill? No Information not available 06/18/2023 In The 14 Days Before Symptom Onset, Have You Had Close Contact With A Person Who Is Under Investigation For COVID-19 While That Person Was Ill? No Information not available 06/18/2023 Have You Been To An Area Known To Be High Risk For COVID-19? No Information not available 06/18/2023 Are You Deaf Or Do You Have Serious Difficulty Hearing? No Information not available 06/18/2023 What Type Of Diet Are You Following? REGULAR Information not available 06/18/2023 Are There Any Guns Present In Your Home? No Information not available 06/18/2023 What Was The Date Of Your Most Recent Tobacco Screening? 06/18/2023 Information not available 06/18/2023 What Is Your Current Pack Years? 10-19packyear s Information not available 06/18/2023 Do You Use Your Seat Belt Or Car Seat Routinely? Yes Information not available 06/18/2023 Do You Have Smoke And Carbon Monoxide Detectors In Your Home? Yes Information not available 06/18/2023 How Much Tobacco Do You Smoke? No Information not available 06/07/2024 Do You Use Any Illicit Or Recreational Drugs? No Information not available 06/18/2023 Has Tobacco Cessation Counseling Been Provided? Yes Information not available 06/18/2023 On What Date Was Tobacco Cessation Counseling Provided? 06/18/2023 Information not available 06/18/2023 How Many Years Have You Smoked Tobacco? 8 Information not available 06/07/2024 Do You Or Have You Ever Used Any Other Forms Of Tobacco Or Nicotine? No Information not available 06/18/2023 Sex: Female Functional Status Question Answer Note LastModified by Organizat ion Details LastModified Time Are you able to care for yourself? Yes Information not available 06/18/2023 What is your exercise level? Moderate 5x a week Information not available 06/18/2023 Mental Status None recorded. Family History Relationship Description Onset Age of this Age Resolved Age Notes LastModified by Organization Details LastModified Time Father Hypertensive disorder [email or web address] Not available 2023 12:01:41 Mother Disorder of thyroid gland tcarterma Not available 2023 12:01:52 Medical History Condition Response Coronary Artery Disease N Other N High Blood Pressure Y Atrial Fibrillation N Kidney or Bladder Problems N Thyroid Problems N GI Problems N Depression N COPD N Blood Clots N Skin Problems N Anemia N Heart Attack (NM) N Anxiety Disorder N Diabetes N Muscle, Joint, or Bone Problems N Seizures/Epilepsy N Acid Reflux (GERD) N Cancer N Stroke N Asthma N Allergies N High Cholesterol N Hepatitis N Liver Disease N Headaches N Heart Failure N Osteoporosis N Gynecological History Statement/Question Response Menses Monthly N Current Control Method Tubal Ligat ion Obstetrics History GPAL:G 1 P 0 0 0 1 Type Value Multiple Births 0 Full Term 0 Induced 0 Spontaneous 0 Premature 0 Living 1 Ectopics 0 Total 1 Past Encounters Encounter ID Performer Location Encounter Start Date Encounter Closed Date Diagnosis/Indication Diagnosis SNOMED-CT Code Diagnosis ICD10 Code Diagnosis Note [id number] OZZY Prince [facility] [address] [place] [address] 06/18/2023 10:53:05 06/18/2023 13:01:37 Acute sinusitis 59182037 J01.90 start cefdinir 300mg bid x 7 days . continue OTC antihistam ine and decongesta nt. Otalgia of right ear 552 5135011 H92.01 start prednisone 40mg daily x 5 days [id number] OZZY Prince [facility] [address] [place] [address] 06/07/2024 10:17:26 06/07/2024 11:24:53 Body mass index 30+ - obesity 514731135 Z68.30 BMI is 30.3 Obesity 131793104 E66.9 Itching of skin 93669794 0 L29.9 Start a Medrol Dosepak. If symptoms continue we will refer to Dermatolog y Long-term drug therapy 724871110 Z79.891 All routine labs were ordered for fasting evaluation Cholesterol screening 27 8301096 Z13.220 Fasting lipid panel due Diabetes akira mejia screening 178106906 Z13.1 A1c screening for diabetes risk assessment Endocrine/ metabolic screening 331325305 Z13.228 Screening vitamin-D due Thyroid di sorder screening 141115027 Z13.29 Thyroid function testing is due Screening mammography 24 552697 Z12.31 Annual mammogram is due Screening for malignant neoplasm of colon 649000878 Z12.11 Refer for baseline colonoscop y Health Concerns Section Related Observation LastModified by Organization Detai ls LastModified Time None Recorded Concern Status LastModified by Organization Details LastModified Time None Recorded Advance Directives Directive None Recorded Payers Encounter Date Sequence Insurance Name Policy Number Policy Munoz Covered Member ID Munoz Member ID Guarantor Name 06/18/2023 1 [place] 112 Jamie Akira Antonella [id number] Nusrat Berman 06/07/2024 1 [place] [place]) 112 Jamie Berman [id number] Nusrat Berman Notes Date Note Type Note Provider Name and Address Organization Details Recorded Time 06/18/2023 text/html EaracheReported bypatient.[facility] Quality:aching; throbbing Severity:worsening Duration:frequent Timing:worse Context:no sick contacts; no recent swimming/water in ear Modifying Factors:does not hurt to lie on, or pull on ear;hurts to chew Associated Symptoms:nose/sinus problems OZZY Prince Attn: Accounting,[address] [place], [address], [facility] 06/29/2023 16:51:51 06/07/2024 text/html Generic HPI TemplateReported bypatient.Notes:Elise flores is here for pruritus of the skin. She originally had some rash components and use steroid cream on it which did help however significant pruritus persists in areas of the extremities and thighs. There is nothing visible and no source of contact irritation. She needs some additional treatment. She is also due for updated labs OZZY Prince Attn: Accounting,[address] [place], [address], [facility] 06/10/2024 00:07:46 OBGyn Episode No OBEpisode recorded.
--- OUTSIDE RECORDS SUMMARY | 2024-06-30 11:22 | XMS_ITS | Referral Summary ---
Author Organization [facility] Address [address] [place] [address] Care Team Providers Care Visual Designer Name Role Phone Renata Cadet Primary Care Pr ovider Allergies Active Allergy Reactions Criticality Noted Date Comments Codeine Itching,Shortness of breath,Swelling High 04/20/2020 Latex Itching,Swelling Medium 05/12/2020 Medications omega 3-yed-tgr-fish oil (Fish Oil) 1,000 mg (120 mg-180 mg) capsule Take 1 capsule by mouth every morning Active CALCIUM ORAL Take 1 tablet by mouth nightly Active vit A/vit C/biotin/zinc/c opper (QTWN-SAZD-OBDC ,VIT A,C-BIOTIN, ORAL) Take 1 tablet by mouth every morning Active cholecalciferol (Vitamin D3) 400 unit capsule Take 400 Units by mouth every morning Active Active Problems Problem Noted Date Diagnosed Date Plantar fasciitis 04/21/2020 Right calcaneal bursitis 04/21/2020 Social History Tobacco Use Types Packs/Day Years [...] on file 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
== END 2024-06-30 10:04 | disposition home or self-care (01) ==
PROVIDERS: PCP Physician Assistant; Visit Provider Physician Assistant
DX: Z12.31 Encounter for screening mammogram for malignant neoplasm of breast (principal); R91.8 Other nonspecific abnormal finding of lung field
CPT/HCPCS: 77063; 77067

== ENCOUNTER 2024-07-19 09:25 | Outpatient (CLI) | payer BC, SELFPAY ==
--- NOTE | ~2024-07-19 | MMUS_ITS ---
EXAMINATION: MM diagnostic charanjit BI w osmar, US breast BI complete HISTORY: Call back from outside institution. TECHNIQUE: Additional 3-D tomosynthesis images of the breasts were performed and synthetic 2-D images were generated. CAD analysis was submitted and interpreted. High resolution bilateral complete breas t ultrasound was performed. COMPARISON: Comparison to multiple prior studies sequentially, with oldest reviewed study dated 04/26. BREAST PARENCHYMAL COMPOSITION: Not dense: There are scattered areas of fibroglandular density. FINDINGS: MAMMOGRAPHIC FINDINGS: There are no suspicious masses, calcifications or architectural distortion in either breast to sugges t malignancy. ULTRASOUND: Complete US of all 4 quadrants of the breast/s and retroareolar region was reviewed. Right breast: In the subareolar location there is a 7 mm cyst. No suspicious masses to suggest malign roger. Left breast: At 6:00, 5 cm from the nipple there is a 9 mm cyst. No suspicious masses to suggest alfred gnancy. IMPRESSION: 1. No evidence for malignancy in either breast. Benign findings. 2. Routine yearly screening mammogram and regular clinical breast examination are recommended. BI-RADS Category 2: Benign finding(s). Reviewed, dictated and finalized at location A. IMPRESSION: 1. No evidence for malignancy in either breast. Benign findings. 2. Routine yearly screening mammogram and regular clinical breast examination a re recommended. BI-RADS Category 2: Benign finding(s).
--- OUTSIDE RECORDS SUMMARY | 2024-07-19 10:17 | XMS_ITS | Referral Summary ---
Author Organization [facility] Address [address] [place] [address] Care Team Providers Care Surplus Property Disposal Agent Name Role Phone Renata Cadet Primary Care Pr ovider Allergies Active Allergy Reactions Criticality Noted Date Comments Codeine Itching,Shortness of breath,Swelling High 04/20/2020 Latex Itching,Swelling Medium 05/12/2020 Medications omega 8-jym-qjm-fish oil (Fish Oil) 1,000 mg (120 mg-180 mg) capsule Take 1 capsule by mouth every morning Active CALCIUM ORAL Take 1 tablet by mouth nightly Active vit A/vit C/biotin/zinc/c opper ([id number]-JMXV ,VIT A,C-BIOTIN, ORAL) Take 1 tablet by [...] on file 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
--- OUTSIDE RECORDS SUMMARY | 2024-07-19 10:17 | XMS_ITS | Clinical Summary ---
Author Organization [facility] Address [address] [place] [address] Care Team Providers Care Dermatologist And Dermatopathologist Name Role Phone Renata Cadet Primary Care Pr ovider Allergies Active Allergy Reactions Criticality Noted Date Comments Codeine Itching,Shortness of breath,Swelling High 04/20/2020 Latex Itching,Swelling Medium 05/12/2020 Medications omega 4-vzp-doy-fish oil (Fish Oil) 1,000 mg (120 mg-180 mg) capsule Take 1 capsule by mouth every morning Active CALCIUM ORAL Take 1 tablet by mouth nightly Active vit A/vit C/biotin/zinc/c opper (CUME-OQSI-JMRA ,VIT A,C-BIOTIN, ORAL) Take 1 tablet by [...] on file 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
--- OUTSIDE RECORDS SUMMARY | 2024-07-19 10:17 | XMS_ITS | Data Portability ---
[facility] Address [address] [place] [address] Care Team Providers Care Supervisor Network Control Operators Name Role Phone CULLEN QUINONES Primary Care Provider Unavailab le Assessment No assessment recorded. Plan of Treatment Reminders Order Date Submit Date Provider Last Modified By Organization Details Last Modified Time Details Appointments None recorded. Lab TSH + free T4, serum 2024 025 [employer] [facility], [address], [place], [address], 5 10:52:02 CMP, serum or plasma 2024 025 [employer] [facility], [address], [place], [address], 5 10:50:35 CBC w/ auto diff 2024 025 [employer] [facility], [address], [place], [address], 5 10:50:47 vitamin B12 + folate, serum or blood 2024 025 [employer] [facility], [address] [place], [address], 5 10:50:58 magnesium, serum or plasma 2024 025 [employer] [facility], [address] [place], [address], 5 10:51:13 lipid panel, serum 2024 025 [facility], [address], [place], [address], 5 10:51:24 vitamin D, 25-hydroxy , total, serum 2024 025 [facility], [address], [place], [address], 5 10:51:51 HbA1c (hemoglobi n A1c), blood 2024 025 [facility], [address], [place], [address], 5 10:51:35 insulin, serum 2024 025 [facility], [address], [place], [address], 5 10:50:24 Referral None recorded. Procedures colonoscop y screening (PROC) [address] [place] [address] [facility], [address], [address], [place], [address], 5 10:58:21 Surgeries None recorded. Imaging MAMMO, screening, digital, bilateral [address] [facility], [address] [facility], [place], [address], 5 14:48:11 Medication Orders Medrol (Roderick) 4 mg tablets in a dose pack [address] [facility], [address], [place], [address], 5 10:57:44 prednisone 20 mg tablet [address] [facility], [address] [place], [address], 5 10:32:02 cefdinir 300 [address] capsule [address] [facility], [address] [place], [address], 5 10:39:20 Patient TargetsNo targets recorded. Patient Instructions Encounter Date Encounter Id Patient Instructions Last Modified By Organization Details Last Modified Time 06/07/2024 [id number] A healthy lifestyle: care instructions [email or web address] Not available 06/07/2024 10:57:20 Reason for Referral None Reported. Results Created Date Observation Date Name Description Value Unit Range Abnormal Flag Note LastModifiedBy Organization Detail LastModifiedTime 06/19/1901/16/2021 MAMMO , scree alivia, bilat eral No observ ation record ed. [email or web address] [facility] [address] [place], [address], 06/22/2023 17:29:36 06/26/19 24 05/23/2023 MAMMO , scree alivia, bilat eral No observ ation record ed. [email or web address] [facility] [address] [place], [address], 07/15/2023 13:44:51 07/01/19 24 05/23/2023 MAMMO , scree alivia, digit al, bilat eral No observ ation record ed. [email or web address] [facility] [address] [place], [address], 07/24/2023 16:13:56 07/01/19 25 06/30/2024 MAMMO , scree alivia, digit al, bilat eral No observ ation record ed. [facility] [address] [place], [address], 07/01/2024 10:49:29 07/13/19 25 06/30/2024 MAMMO , natie alivia, digit al, bilat eral No observ ation record ed. [facility] [address] [place], [address], 07/13/2024 15:26:33 Result Notes None recorded. Problems Name Problem SNOMED Code Status Onset Date Resolution Date Notes Provider Name and Address Organization Details Recorded Time Body mass index 30+ - obesity 921931663 Active 025 Willam Riley MA null, [place] [facility] 10:33:59 Obesity 902369410 Active 025 OZZY Prince Attn: Accounting ,[address] [facility], [place], [address] , [facility] - [facility] 00:06:18 Problem Notes None recorded. Procedures Surgical History Date Name Laterality Status Provider Name and Address Organization Details Recorded Time ligation of bilateral fallopian tubes completed Willam Riley MA CT - [facility] 06/18/2023 12:01:10 Breast Surgery completed Willam Riley MA CT - [facility] 06/18/2023 12:01:17 section completed Willam Riley MA [facility] 06/18/2023 12:01:22 Imaging Results Imaging Date Name Status LastModified by Organiz atcount includes the [facility] Details LastModified Time 01/16/2021 MAMMO, screening, bilateral completed [email or web address] [facility] [address] [place], [address], 06/22/2023 17:29:36 05/23/2023 MAMMO, screening, bilateral completed [email or web address] [facility] [address] [place], [address], 07/15/2023 13:44:51 05/23/2023 MAMMO, screening, digital, bilateral completed [email or web address] [facility] [address] [place], [address], 07/24/2023 16:13:56 06/30/2024 MAMMO, screening, digital, bilateral completed [facility] [address] [place], [address], 07/01/2024 10:49:29 06/30/2024 MAMMO, screening, digital, bilateral completed [facility] [address] [place], [address], 07/13/2024 15:26:33 Procedure Notes None recorded. Medical Equipment None Reported. Allergies Allergen ID Allergen Name Allergen Category Reaction Reaction Severity Criticality Documentation Date Start Date Code Code System Note Provider Name and Address Organization Details Recorded Time 187277 codeine medicatio n Not available Not available Not available 06/18/2023 2670 RxNorm Not Available Not Available Not Available 994485 tramadol medicatio n Not available Not available Not available 06/18/2023 54314 RxNorm Not Available Not Available Not Available 393706 latex environme nt,medica tion Not available Not available Not available 06/18/2023 91898 91 RxNorm Not Available Not Available Not [...] Address Organization Details Last Updated DateTime 4 88735.6 6 g 94 /min 18 /min 98 % 98 % 30.3 kg/m2 173.99 cm 144 mm[Hg] 10 mm[Hg] 166 mm[Hg] 105 mm[Hg] Willam Riley MA [facility] SI 4 11:28:22 Date Recorded Systolic blood pressure Diastolic blood pressure Systolic blood pressure Diastolic blood pressure Provider Name and Address Organization Details Last Updated DateTime 06/18/2023 142 mm[Hg] 90 mm[Hg] 140 mm[Hg] 92 mm[Hg] OZZY Prince Attn: Accounting ,[address] [place], [address] , [facility] SI 4 11:42:01 Date Recorded Body height Body mass index (BMI) Body weight Oxygen saturation Oxygen saturation in Arterial blood by Pulse oximetry Heart rate Systolic blood pressure Diastolic blood pressure Provider Name and Address Organization Details Last Updated DateTime 5 173.99 cm 30.3 kg/m2 74349.6 6 g 98 % 98 % 100 /min 146 mm[Hg] 82 mm[Hg] Willam Riley MA [facility] 10:37:07 Date Recorded Respiratory rate Systolic blood pressure Diastolic blood pressure Provider Name and Address Organization Details Last Updated DateTime 06/07/2024 18 /min 144 mm[Hg] 80 mm[Hg] OZZY Prince Attn: Accounting, [address] [place], [address], [facility] 06/07/2024 10:58:35 Social History Question Answer Notes LastModified by Organizat ion Details LastModified Time Tobacco Smoking Status Former Smoker Pt. States that she has been strong. Willam Riley MA null, [facility] 06/07/2024 10:32:39 What Is Your Level Of [...] Functional Status Question Answer Note LastModified by [employer] Details LastModified Time Are you able to [...] Response Coronary Artery Disease N Other N Atrial Fibrillation N High Blood Pressure Y Depression N COPD N Blood Clots N Anxiety Disorder N Muscle, Joint, or Bone Problems N Acid Reflux (GERD) N Cancer N Stroke N High Cholesterol N Liver Disease N Headaches N Kidney or Bladder Problems N Thyroid Problems N GI Problems N Skin Problems N Anemia N Heart Attack (MS) N Diabetes N Seizures/Epilepsy N Asthma N Allergies N Hepatitis N Heart Failure N Osteoporosis N Gynecological [...] SNOMED-CT Code Diagnosis ICD10 Code Diagnosis Note [id number] OZZY Prince [facility] [address] [place] [address] 06/18/2023 10:53:05 06/18/2023 13:01:37 Acute sinusitis 11974882 J01.90 start cefdinir 300mg bid x 7 days . continue OTC antihistam ine and decongesta nt. Otalgia of right ear 686 8424601 H92.01 start prednisone 40mg daily x 5 days [id number] OZZY Prince [facility] [place] [address] [place] [address] 06/07/2024 10:17:26 06/07/2024 11:24:53 Body mass index 30+ - obesity 987914811 Z68.30 BMI is 30.3 Obesity 602847228 E66.9 Itching of skin 80178673 0 L29.9 Start a Medrol Dosepak. If symptoms continue we will refer to Dermatolog y Long-term drug therapy 988933958 Z79.891 All routine labs were ordered for fasting evaluation Cholesterol screening 27 6442884 Z13.220 Fasting lipid panel due Diabetes m ellitus screening 523069565 Z13.1 A1c screening for diabetes risk assessment Endocrine/ metabolic screening 284365704 Z13.228 Screening vitamin-D due Thyroid di sorder screening 274920954 Z13.29 Thyroid function testing is due Screening mammography 24 447693 Z12.31 Annual mammogram is due Screening for malignant neoplasm of colon 696393072 Z12.11 Refer for baseline colonoscop y Health Concerns Section Related Observation LastModified by Organization Detai ls LastModified Time None Recorded Concern Status LastModified by Organization Details LastModified Time None Recorded Advance Directives Directive None Recorded Payers Encounter Date Sequence Insurance Name Policy Number Policy Munoz Covered Member ID Munoz Member ID Guarantor Name 06/18/2023 1 [place] 112 Jamie Berman [id number] Nusrat Berman 06/07/2024 1 [place] [employer] [place] ([place]) 112 Jamie Berman [id number] Nusrat Berman Notes Date Note Type Note Provider Name and Address Organization Details Recorded Time 06/18/2023 text/html EaracheReported bypatient.Location:[facility] Quality:aching; throbbing Severity:worsening Duration:frequent Timing:worse Context:no sick contacts; no recent swimming/water in ear Modifying Factors:does not hurt to lie on, or pull on ear;hurts to chew Associated Symptoms:nose/sinus problems OZZY Prince Attn: Accounting,[address] [place], [address], [facility] 06/29/2023 16:51:51 06/07/2024 text/html Generic HPI TemplateReported [...] updated labs OZZY Prince Attn: Accounting,[address] [place], [address], [facility] 06/10/2024 00:07:46 OBGyn Episode No OBEpisode recorded.
== END 2024-07-19 09:26 | disposition home or self-care (01) ==
LOC: CHSIMG 09:28
PROVIDERS: PCP Physician Assistant; Visit Provider Physician Assistant
DX: Z12.31 Encounter for screening mammogram for malignant neoplasm of breast (principal)
CPT/HCPCS: 76641; 77062; 77066; G0279

== ENCOUNTER 2024-12-08 13:27 | Outpatient (CLI) | payer BC, SELFPAY ==
--- OUTSIDE RECORDS SUMMARY | 2024-12-08 13:37 | XMS_ITS | Clinical Summary ---
Author Organization [facility] Address [address] [place] [address] Care Team Providers Care Section Gang Worker Name Role Phone Renata Cadet Primary Care Pr ovider Allergies Active Allergy Reactions Criticality Noted Date Comments Codeine Itching,Shortness of breath,Swelling High 04/20/2020 Latex Itching,Swelling Medium 05/12/2020 Medications omega 7-wco-hrt-fish oil (Fish Oil) 1,000 mg (120 mg-180 mg) capsule Take 1 capsule by mouth every morning Active CALCIUM ORAL Take 1 tablet by mouth nightly Active vit A/vit C/biotin/zinc/c opper (VXYZ-[id number]-IEZC ,VIT A,C-BIOTIN, ORAL) Take 1 tablet by [...] on file 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
--- NOTE | 2024-12-20 15:58 | WPDHOLTEREM ---
Holter/Event Monitor Holter/Event Monitor Date of procedure: 12/08/24 Holter/Event Procedure: 3-7 Day Holter Monitor Indications: Palpitations Conclusion: 1. 3 days holter monitor on 12/08/24. 2. Predominant rhythm is sinus rhythm. HR range 45-130 bpm; average HR 86 bpm. HR at 45 bpm was on 12/10/24 at 6:09 am. 3. There are rare premature supraventricular complexes and rare supraventricular couplets. There are 4 episodes of supraventricular tachycardia with fastest at 130 bpm and longest lasting 11 beats. 4. There are rare premature ventricular complexes. No ventricular tachycardia. 5. No significant pauses greater than 3 seconds. 6. Patient reports 10 episodes of symptoms of shortness of breath, irregular beats, flutter which demonstrate sinus rhythm, HR range 79-99 bpm with 5 episodes with PAC's.
== END 2024-12-08 13:28 | disposition home or self-care (01) ==
PROVIDERS: PCP Physician Assistant; Visit Provider Physician Assistant
DX: R00.2 Palpitations (principal)
CPT/HCPCS: 93242

== ENCOUNTER 2024-12-21 09:00 | Outpatient (CLI) | payer BC, SELFPAY ==
--- NOTE | 2024-12-21 | EST_ITS ---
Patient Info Name: Nusrat Berman Age: 44 years : 1980 Gender: Female Ht: 68 in Wt: 198 lbs BSA: 2.10 m2 HR: 82 bpm BP: 136 / 86 mmHg Exam Date: 12/21/2024 9:14 AM Patient Status: O Admit Date: 12/21/2024 Exam Type: CA stress echo Treadmill exercise stress echocardiogram is performed. Staff Referring Physician: Renata Cadet Attending Provider: Renata Cadet Exercise Technologist: Topher Leon III Exercise Physician: Gwyn Bran DO Summary 1. 1. Negative Escobar exercise stress test for ischemic ST changes by ECG criteria. 2. 2. Good functional capacity, achieving 12 METs of workload. 3. 3. Appropriate HR response to exercise. 4. 4. Appropriate HR recovery at 1 minute post exercise. 5. 5. Negative stress echocardiogram for ischemia by wall motion analysis. 6. 6. Patient informed of the above results. Stress Echo Findings Left Ventricle Appropriate increase in LV endocardial thickening with systole. Appropriate augmentation of contractility with systole. No wall motion abnormality. Left Ventricle Normal LV systolic function, no wall motion abnormality. Protocol: Escobar Stress ECG Details Stage: REST Duration (min): 0 min : 37 sec Speed (mph): 0.0 Grade (%): 0 HR (bpm): 84 SBP (mmHg): 136 DBP (mmHg): 86 METS: --- Stage: REST Duration (min): 14 min : 57 sec Speed (mph): 0.0 Grade (%): 0 HR (bpm): 89 SBP (mmHg): 136 DBP (mmHg): 86 METS: --- Stage: STAGE 1 Duration (min): 1 min : 0 sec Speed (mph): 1.7 Grade (%): 10 HR (bpm): 107 SBP (mmHg): 136 DBP (mmHg): 86 METS: --- Stage: STAGE 1 Duration (min): 2 min : 0 sec Speed (mph): 1.7 Grade (%): 10 HR (bpm): 115 SBP (mmHg): 136 DBP (mmHg): 86 METS: --- Stage: STAGE 1 Duration (min): 3 min : 0 sec Speed (mph): 1.7 Grade (%): 10 HR (bpm): 113 SBP (mmHg): 156 DBP (mmHg): 92 METS: --- Stage: STAGE 2 Duration (min): 1 min : 0 sec Speed (mph): 2.5 Grade (%): 12 HR (bpm): 118 SBP (mmHg): 156 DBP (mmHg): 92 METS: --- Stage: STAGE 2 Duration (min): 2 min : 0 sec Speed (mph): 2.5 Grade (%): 12 HR (bpm): 121 SBP (mmHg): 166 DBP (mmHg): 90 METS: --- Stage: STAGE 2 Duration (min): 3 min : 0 sec Speed (mph): 2.5 Grade (%): 12 HR (bpm): 125 SBP (mmHg): 166 DBP (mmHg): 90 METS: --- Stage: STAGE 3 Duration (min): 1 min : 0 sec Speed (mph): 3.4 Grade (%): 14 HR (bpm): 134 SBP (mmHg): 203 DBP (mmHg): 78 METS: --- Stage: STAGE 3 Duration (min): 2 min : 0 sec Speed (mph): 3.4 Grade (%): 14 HR (bpm): 137 SBP (mmHg): 203 DBP (mmHg): 78 METS: --- Stage: STAGE 3 Duration (min): 3 min : 0 sec Speed (mph): 3.4 Grade (%): 14 HR (bpm): 142 SBP (mmHg): 181 DBP (mmHg): 60 METS: --- Stage: STAGE 4 Duration (min): 1 min : 0 sec Speed (mph): 4.2 Grade (%): 16 HR (bpm): 129 SBP (mmHg): 181 DBP (mmHg): 60 METS: --- Stage: STAGE 4 Duration (min): 1 min : 13 sec Speed (mph): 0.0 Grade (%): 0 HR (bpm): 156 SBP (mmHg): 181 DBP (mmHg): 60 METS: --- Stage: RECOVERY Duration (min): 0 min : 47 sec Speed (mph): 0.0 Grade (%): 0 HR (bpm): 137 SBP (mmHg): 197 DBP (mmHg): 61 METS: --- Stage: RECOVERY Duration (min): 1 min : 47 sec Speed (mph): 0.0 Grade (%): 0 HR (bpm): 118 SBP (mmHg): 197 DBP (mmHg): 61 METS: --- Stage: RECOVERY Duration (min): 2 min : 47 sec Speed (mph): 0.0 Grade (%): 0 HR (bpm): 107 SBP (mmHg): 194 DBP (mmHg): 63 METS: --- Stage: RECOVERY Duration (min): 3 min : 47 sec Speed (mph): 0.0 Grade (%): 0 HR (bpm): 106 SBP (mmHg): 194 DBP (mmHg): 63 METS: --- Stage: RECOVERY Duration (min): 4 min : 47 sec Speed (mph): 0.0 Grade (%): 0 HR (bpm): 102 SBP (mmHg): 194 DBP (mmHg): 63 METS: --- Stage: RECOVERY Duration (min): 5 min : 13 sec Speed (mph): 0.0 Grade (%): 0 HR (bpm): 102 SBP (mmHg): 167 DBP (mmHg): 61 METS: --- Rest HR: 89 bpm Peak HR: 156 bpm Rest Sys BP: 136 mmHg Peak Sys BP: 203 mmHg Max Pred HR: 176 bpm % Max Pred HR: 89 % Target HR: 150 bpm Max RPP: 31,668 bpm*mmHg Howell Score: 5 Termination Reason: Reached target heart rate or workload Cardiac Symptoms: Shortness of breath Max ST Seg Deviation: 1 mm Total Time: 10 min : 13 sec Rest Her BP: 86 mmHg Peak Her BP: 78 mmHg Angina Score: None Total METS: 12.1 Resting ECG Sinus rhythm. Stress ECG No ST changes. Arrhythmias None. PVC's with exercise. Report Signatures Stress ECG Echo
--- OUTSIDE RECORDS SUMMARY | 2024-12-21 09:43 | XMS_ITS | Clinical Summary ---
Author Organization [facility] Address [address] [place] [address] Care Team Providers Care Alcohol Rubber Name Role Phone Renata Cadet Primary Care Pr ovider Allergies Active Allergy Reactions Criticality Noted Date Comments Codeine Itching,Shortness of breath,Swelling High 04/20/2020 Latex Itching,Swelling Medium 05/12/2020 Medications omega 7-jpe-soq-fish oil (Fish Oil) 1,000 mg (120 mg-180 mg) capsule Take 1 capsule by mouth every morning Active CALCIUM ORAL Take 1 tablet by mouth nightly Active vit A/vit C/biotin/zinc/c opper ([id number] ,VIT A,C-BIOTIN, ORAL) Take 1 tablet by [...] on file 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
== END 2024-12-21 09:01 | disposition home or self-care (01) ==
PROVIDERS: PCP Physician Assistant; Visit Provider Physician Assistant
DX: R07.89 Other chest pain (principal)
CPT/HCPCS: 93351

== ENCOUNTER 2025-02-07 02:02 | Day surgery (SDC) | payer BC, SELFPAY ==
--- OUTSIDE RECORDS SUMMARY | 2025-01-21 03:00 | XMS_ITS ---
Author Organization [facility] Address [address] [facility] [address] [place] [address] Care Team Providers Care Forest Pathology Professor Name Role Phone Ursula Delgadillo Unavailable [phone] REASON FOR VISIT Therapy Visit; complete tobacco counseling Social History Sex Assigned At : Social History Observation Description Sex Assigned At Female Encounters Encounter Location Date Provider Diagnosis [facility], [address] [address] [address] 01/21/2025 Ursula Delgadillo Plan Of Treatment No Information Progress Notes * EDWIN SHWETAB:1980 (45 yo F)Acc No.[id number]:01/21/2025 Patient: CHEO HALL Provider: Olayinka Delgadillo :1980 A ge:44 Y S ex:Female Date:01/21/2025 Phone: Address:[address] [facility] Data: * Chief Complaints: * T herapy Visit; complete tobacco counseling * Electronic signature of Sudhir Delgadillo LCPC on 02/07/2025 at 02:04 AM CDT Sign off status: Pending Signatures: No Ad Hoc Signature Added * Provider: Olayinka Delgadillo Date: Generated for Oracio dewey/Yee/Jt on: 02:04 AM CDT
--- OUTSIDE RECORDS SUMMARY | 2025-01-28 03:00 | XMS_ITS ---
Author Organization [facility] Address [address] [place] [address] Care Team Providers Care Charge Gang Weigher Name Role Phone Ursula Delgadillo Unavailable [phone] REASON FOR VISIT Therapy Visit; complete tobacco counseling Social History Sex Assigned At : Social History Observation Description Sex Assigned At Female Encounters Encounter Location Date Provider Diagnosis [facility], [address] [address] [address] 01/28/2025 Ursula Delgadillo Plan Of Treatment No Information Progress Notes * EDWIN SHWETAB:1980 (45 yo F)Acc No.[id number]:01/28/2025 Patient: CHEO HALL Provider: Olayinka Delgadillo :1980 A ge:44 Y S ex:Female Date:01/28/2025 Phone: Address:[address] [facility] Data: * Chief Complaints: * T herapy Visit; complete tobacco counseling * Electronic signature of Sudhir Delgadillo LCPC on 02/07/2025 at 02:04 AM CDT Sign off status: Pending Signatures: No Ad Hoc Signature Added * Provider: Olayinka Delgadillo Date: Generated for Oracio dewey/Yee/Jt on: 02:04 AM CDT
[2025-01-28 15:03] VITALS: BMI 29.9
--- OUTSIDE RECORDS SUMMARY | 2025-02-07 02:04 | XMS_ITS | Clinical Summary ---
Author Organization [facility] Address [address] [place] [address] Care Team Providers Care Property Claim Rep Name Role Phone Renata Cadet Primary Care Pr ovider Allergies Active Allergy Reactions Criticality Noted Date Comments Codeine Itching,Shortness of breath,Swelling High 04/20/2020 Latex Itching,Swelling Medium 05/12/2020 Medications omega 7-len-zzb-fish oil (Fish Oil) 1,000 mg (120 mg-180 mg) capsule Take 1 capsule by mouth every morning Active CALCIUM ORAL Take 1 tablet by mouth nightly Active vit A/vit C/biotin/zinc/c opper ([id number] ,VIT A,C-BIOTIN, ORAL) Take 1 tablet by [...] on file 

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
--- OUTSIDE RECORDS SUMMARY | 2025-02-07 02:04 | XMS_ITS | Data Portability ---
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 Plan of Treatment Reminders Order Date Submit Date Provider Last Modified By Organization Details Last Modified Time Details Appointments None recorded. Lab TSH + free T4, serum 2024 025 [email or web address] [facility], [address], [place], [address], 5 12:57:14 CMP, serum or plasma 2024 025 [email or web address] [facility], [address], [place], [address], 5 12:57:13 CBC w/ auto diff 2024 025 [email or web address] [facility], [address], [place], [address], 5 12:57:13 vitamin B12 + folate, serum or blood 2024 025 [email or web address] [facility], [address] [place], [address], 5 12:57:14 magnesium, serum or plasma 2024 025 [email or web address] [facility], [address] [place], [address], 5 12:57:14 lipid panel, serum 2024 025 [facility], [address], [place], [address], 5 12:57:14 vitamin D, 25-hydroxy , total, serum 2024 025 [email or web address], [address], [place], [address], 5 12:57:14 HbA1c (hemoglobi n A1c), blood 2024 025 [facility], [address], [place], [address], 5 12:57:13 insulin, serum 2024 025 [facility], [address], [place], [address], 5 12:57:13 Referral None recorded. Procedures colonoscop y screening (PROC) 2024 [facility] - [facility], [address], [address], [place], [address], 14:44:00 Surgeries None recorded. Imaging holter monitor 2024 [facility] (Cardiology & Emg), [address], [place], [address], 11:54:41 stress echocardio gram 2024 [facility] (Cardiology & Em[facility]), [address], [place], [address], 15:22:29 electrocar diogram 2024 025 [email or web address] In-Office Order, Internal Use Only DO Not Attach Compendium DO Not Attach Compendium, Do Not Delete/merge, [id number] 5 15:35:35 MAMMO, screening, digital, bilateral 2024 025 [facility], [address] [place], [address], 14:48:11 Medication Orders losartan 50 mg tablet 2024 025 [facility] [place], [address], 5 17:44:17 Medrol (Roderick) 4 mg tablets in a dose pack 2024 025 [facility], [address] [place], [address], 5 16:39:41 prednisone 20 mg tablet 2023 025 [facility], [address] [place], [address], 5 10:32:02 cefdinir 300 mg capsule 2023 025 [facility], [address] [place], [address], 5 10:39:20 Patient TargetsNo targets recorded. Patient Instructions Encounter Date Encounter Id Patient Instructions Last Modified By Organization Details Last Modified Time 06/07/2024 [id number] A healthy lifestyle: care instructions [email or web address] Not available 06/07/2024 10:57:20 Reason for Referral None Reported. Results Created Date Observation Date Name Description Value Unit Range Abnormal Flag Note LastModifiedBy Organization Detail LastModifiedTime 06/19/1901/16/2021 MAMMO , scree alivia, bilat eral No observ ation record ed. [email or web address] [address], [address], 06/22/2023 17:29:36 06/26/19 24 05/23/2023 MAMMO , scree alivia, bilat eral No observ ation record ed. [email or web address] [facility] [place] [address] [place], [address], 07/15/2023 13:44:51 07/01/19 24 05/23/2023 MAMMO , scree alivia, digit al, bilat eral No observ ation record ed. [email or web address] [facility] [place] [address] [place], [address], 07/24/2023 16:13:56 07/01/19 25 06/30/2024 MAMMO , scree alivia, digit al, bilat eral No observ ation record ed. [facility] [address] [place], [address], 07/01/2024 10:49:29 07/13/19 25 06/30/2024 MAMMO , scree alivia, digit al, bilat eral No observ ation record ed. [facility] [address] [place], [address], 07/13/2024 15:26:33 07/20/19 25 07/19/2024 MAMMO , diagn ostic , digit al, bilat eral No observ ation record ed. [facility] [address] [place], [address], 07/20/2024 12:14:28 11/25/19 25 11/24/2024 elect vasiliy cedeño am No observ ation record ed. [email or web address] In-Office Order Internal Use Only DO Not Attach Compendium DO Not Attach Compendium, Do Not Delete/merge, [id number] 11/24/2024 17:52:21 12/21/19 25 12/08/2024 angela r monit or No observ ation record ed. [facility] (Cardiology & Em[facility]) [address], [place], [address], 12/21/2024 11:53:53 Result Notes None recorded. Problems Name Problem SNOMED Code Status Onset Date Resolution Date Notes Provider Name and Address Organization Details Recorded Time Body mass index 30+ - obesity 274646120 Active 2024 Willam Riley MA null, [place] - [facility] 10:33:59 Obesity 722565498 Active 2024 OZZY Prince Attn: Accountin g,[address] [facility], [place], [address], [facility] - [facility] 5 00:06:18 Overweight in adulthood with body mass index of 25 or more but less than 30 116420505 Active 2024 OZZY Prince Attn: Accountin g,[address] [facility], [place], [address], [facility] - [facility] 5 17:16:04 Benign hypertension 65175909 Active 2024 OZZY Prince Attn: Accountin g,[address] [facility], [place], [address], [facility] - [facility] 5 17:16:05 Intermittent palpitations 324976708 Active 2024 OZZY Prince Attn: Accountin g,[address] [facility], [place], [address], [facility] - [facility] 5 17:16:06 Chest discomfort 847177360 Active 2024 OZZY Prince Attn: Accountin g,[address] [facility], [place], [address], [facility] - [facility] 5 17:16:08 Problem Notes None recorded. Procedures Surgical History Date Name Laterality Status Provider Name and Address Organization Details Recorded Time ligation of bilateral fallopian tubes completed Willam Riley [place] 06/18/2023 12:01:10 Breast Surgery completed Willam Riley [place] 06/18/2023 12:01:17 section completed JARED Ye - [facility] 06/18/2023 12:01:22 Imaging Results None recorded. Procedure Notes None recorded. Medical Equipment None Reported. Allergies Allergen ID Allergen Name Allergen Category Reaction Reaction Severity Criticality Documentation Date Start Date Code Code System Note Provider Name and Address Organization Details Recorded Time 159271 codeine medicatio n Not available Not available Not available 06/18/2023 2670 RxNorm JARED Ye [place] - [place] 4 11:26:05 165920 tramadol medicatio n Not available Not available Not available 06/18/2023 87936 RxNorm JARED Ye [place] - [facility] 11:26:10 733185 latex environme nt,medica tion Not available Not available Not available 06/18/2023 57307 91 RxNorm JARED Ye [place] - [place] 11:26:19 Medications Name Sig Start Date Stop Date Status Note LastModified by Organization Details LastModified Time losartan 50 mg tablet TAKE 1 TABLET BY MOUTH ONCE DAILY 12/21 completed Not Available Not Available Not Available carisoprodo l 350 mg tablet TAKE 1 TABLET BY MOUTH EVERY 8 HOURS NEEDED FOR PAIN FOR MUSCLE SPASM 06/07 completed Not Available Not Available Not Available doxycycline hyclate 100 mg capsule Take 1 capsule twice a day by oral route with meal(s). 11/24 completed Not Available Not Available Not Available triamcinolo ne acetonide 0.5 % topical cream APPLY A THIN LAYER TO THE AFFECTED AREA(S) of rash on body BY TOPICAL ROUTE 2 TIMES PER DAY 11/24 completed Not Available Not Available Not Available ibuprofen 800 mg tablet TAKE 1 TABLET BY MOUTH EVERY 8 HOURS NEEDED FOR PAIN/SWEL LING 11/24 completed Not Available Not Available Not Available ondansetron HCl 4 mg tablet TAKE [...] completed Not Available Not Available Not Available lisinopril 10 mg tablet Take 1 tablet every day by oral route in the morning for 90 days. 11/24 completed Not Available Not Available Not Available lisinopril 10 mg-hydrochl orothiazide 12.5 mg tablet TAKE 1 TABLET BY MOUTH ONCE DAILY active Not Available Not Available No t Available methylpredn isolone 4 mg tablets in a dose pack TAKE BY MOUTH DIRECTED ON INSIDE OF PACKAGE 11/24 completed Not Available Not Available Not Available cefdinir 300 mg capsule Take 1 capsule every 12 hours by oral route. 06/07 completed Not Available Not Available Not Available calcium active otc Not Available Not Avail able Not Available krill oil active otc Not Available Not Rehana ilable Not Available Hair, Skin and Nails (biotin) otc active Not Available Not Available Not Available Vitals Date Recorded Respiratory rate Systolic And Diastolic Provider Name and Address Organization Details Last Updated DateTime 06/07/2024 18 /min 144/80 mm[Hg] OZZY Prince Attn: Accounting,[address] [place], [address], [place] [facility] 06/07/2024 10:58:35 Date Recorded Body height Body mass index (BMI) Body weight Oxygen saturation Oxygen saturation in Arterial blood by Pulse oximetry Heart rate Systolic And Diastolic Provider Name and Address Organization Details Last Updated DateTime 173.99 cm 30.3 kg/m2 07479.6 6 g 98 % 98 % 100 /min 146/82 mm[Hg] Willam Riley MA [facility] 5 10:37:07 Date Recorded Systolic And Diastolic Systolic And Diastolic Provider Name and Address Organization Details Last Updated DateTime 06/18/2023 142/90 mm[Hg] 140/92 mm[Hg] OZZY Prince Attn: Accounting,[address] [place], [address], [facility] 06/18/2023 11:42:01 Date Recorded Body weight Heart rate Respiratory rate Oxygen saturation Oxygen saturation in Arterial blood by Pulse oximetry Body mass index (BMI) Body height Systolic And Diastolic Systolic And Diastolic Provider Name and Address Organization Details Last Updated DateTime 4 06931.6 6 g 94 /min 18 /min 98 % 98 % 30.3 kg/m2 173.99 cm 144/10 mm[Hg] 166/105 mm[Hg] Willam Riley MA [facility] 4 11:28:22 Date Recorded Respiratory rate Systolic And Diastolic Provider Name and Address Organization Details Last Updated DateTime 11/24/2024 18 /min 124/80 mm[Hg] OZZY Prince Attn: Accounting,[address] [place], [address], [facility] 11/24/2024 17:42:13 Date Recorded Body height Body mass index (BMI) Body weight Oxygen saturation Oxygen saturation in Arterial blood by Pulse oximetry Heart rate Systolic And Diastolic Provider Name and Address Organization Details Last Updated DateTime 5 173.99 cm 29.8 kg/m2 08165.8 8 g 97 % 97 % 91 /min 130/82 mm[Hg] Willam Riley MA [facility] 5 16:50:51 Social History Question Answer Notes LastModified by Organizat ion Details LastModified Time Tobacco Smoking Status Former Smoker Pt. States that she has been strong. Willam Riley MA null, [facility] 06/07/2024 10:32:39 Are You Blind Or Do You Have Difficulty Seeing? No Information not available 06/18/2023 What Is Your Level Of Caffeine Consumption? Heavy Everyday [place] Daily Information not available 06/18/2023 In The 14 Days Before Symptom Onset, Have You Had Close Contact With A Laboratory-confir med COVID-19 While That Case Was Ill? No [...] Date Of Your Most Recent Tobacco Screening? 11/24/2024 Information not available 11/24/2024 What Is Your Current Pack Years? 10-19packye ars Information not available 06/18/2023 What Is Your Relationship Status? Information not available 11/24/2024 Do You Use Your Seat Belt Or Car Seat Routinely? Yes Information not available 06/18/2023 Do You Have Smoke And Carbon Monoxide Detectors In Your Home? Yes Information not available 06/18/2023 How Much Tobacco Do You Smoke? No Information not available 06/07/2024 Has Tobacco Cessation Counseling Been Provided? Yes Information not available 06/18/2023 On What Date Was Tobacco Cessation Counseling Provided? 11/24/2024 Information not available 11/24/2024 How Many Years Have You Smoked Tobacco? 8 Information not available 06/07/2024 How Many Years Have You Used E-cigarettes Or Vape? 1 Information not available 11/24/2024 Sex: Female Functional Status Question Answer Note LastModified by Organizat ion Details LastModified Time Do you use any illicit or recreational drugs? No Information not available 06/18/2023 Do you or have you ever used any other forms of tobacco or nicotine? Yes Information not available 11/24/2024 What is your level of alcohol consumption? Occasional socially , wine Information not available 06/18/2023 Do you or have you ever used smokeless tobacco? Never used smokeless tobacco Information not available 11/24/2024 Are you currently employed? Yes Information not available 11/24/2024 Are you able to care for yourself independently? Yes Information not available 06/18/2023 Do you or have you ever used e-cigarettes or vape? Current user of electronic cigarettes Information not available 11/24/2024 What is your exercise level? Moderate 5x a week Information not available 06/18/2023 Mental Status None recorded. Family History Relationship Description Onset Age of this Age Resolved Age Notes LastModified by Organization Details LastModified Time Father Hypertensive disorder [email or web address] Not available 2023 12:01:41 Mother Disorder of thyroid gland tcarterma Not available 2023 12:01:52 Mother Hypertensive disorder tcarterma Not available 2024 16:48:45 Medical History Condition Response Coronary Artery Disease N Other N Atrial Fibrillation N High Blood Pressure Y Thyroid Problems N Kidney or Bladder Problems N GI Problems N Depression N COPD N Blood Clots N Skin Problems N Anemia N Heart Attack (SC) N Diabetes N Anxiety Disorder N Muscle, Joint, or Bone Problems N Seizures/Epilepsy N Acid Reflux (GERD) N Cancer N Stroke N Asthma N Allergies N High Cholesterol N Hepatitis N Liver Disease N Headaches N Osteoporosis N Heart Failure N Gynecological History Statement/Question Response Menses Monthly N Current Control Method Tubal Ligat ion Obstetrics History GPAL:G 1 P 0 0 0 1 Type Value Multiple Births 0 Full Term 0 Induced 0 Spontaneous 0 Premature 0 Living 1 Ectopics 0 Total 1 Past Encounters Encounter ID Performer Location Encounter Start Date Encounter Closed Date Diagnosis/Indication Diagnosis SNOMED-CT Code Diagnosis ICD10 Code Diagnosis IMO Codes Diagnosis Note [id number] Oliver Canseco MD [facility] [address] [place] [address] 06/18/2023 10:53:05 06/18/2023 13:01:37 Acute sinusitis 22561093 J01.90 start cefdinir 300mg bid x 7 days . continue OTC antihistam ine and decongesta nt. Otalgia of right ear 315 2912003 H92.01 start prednisone 40mg daily x 5 days [id number] Oliver Canseco MD [facility] [employer] [facility] [employer] [address] [place] [address] 06/07/2024 10:17:26 06/07/2024 11:24:53 Body mass index 30+ - obesity 210268035 Z68.30 BMI is 30.3 Obesity 667730763 E66.9 Itching of skin 60307533 0 L29.9 Start a Medrol Dosepak. If symptoms continue we will refer to Dermatolog y Long-term drug therapy 233979005 Z79.891 All routine labs were ordered for fasting evaluation Cholesterol screening 27 1012576 Z13.220 Fasting lipid panel due Diabetes m ellitus screening 409533165 Z13.1 A1c screening for diabetes risk assessment Endocrine/ metabolic screening 286285032 Z13.228 Screening vitamin-D due Thyroid di sorder screening 468143957 Z13.29 Thyroid function testing is due Screening mammography 24 597211 Z12.31 Annual mammogram is due Screening for malignant neoplasm of colon 469757994 Z12.11 Refer for baseline colonoscop y [id number] Oliver Canseco MD [facility] [employer] [facility] [employer] [address] [place] [address] 11/24/2024 16:21:23 11/30/2024 15:35:34 Overweight in adulthood with body mass index of 25 or more but less than 30 033323539 E66.3 Z68.29 7639283449 Intermitte nt palpitations 920935524 R00.2 33050696 Send for a 2-3 day Holter monitor Chest discomfort 7969465 09 R07.89 68623 Low voltage on EKG in the office otherwise no acute findings. Refer for a stress echocardio gram with underlying chest discomfort and hypertensi on and palpitatio ns. Benign hypertension 1072 5009 I10 388098 Change to losartan 50 mg daily discontinu e CRISTIAN inhibitor Health Concerns Section Related Observation LastModified by Organization Detai ls LastModified Time None Recorded Concern Status LastModified by Organization Details LastModified Time None Recorded Advance Directives Directive None Recorded Payers Insurance Date Sequence Insurance Name Policy Number Policy Munoz Covered Member ID Munoz Member ID Guarantor Name 06/18/2023 1 *SELF PAY* Mari Berman 12/06/2024 1 [place] 112 Jamie Berman [id number] Nusrat Berman 06/30/2023 1 [place] 112 Jamie Berman [id number] Nusrat Berman Notes Date Note Type Note Provider Name and Address Organization Details Recorded Time 4 text/html EaracheReported by PatientHPIFor location, patient reportsright. For severity, patient reportsworsening. For timing, patient reportsworse. For modifying factors, patient reportshurts to chewbut reportsdoes not hurt to lie on, or pull on ear. For associated symptoms, patient reportsnose/sinus problems. For quality, patient reportsachingandthrobbing . For duration, patient reportsfrequent. For context, patient reportsno sick contactsandno recent swimming/water in ear. OZZY Prince Attn: Accounting,[address] [place], [address], [facility] - [facility] 06/29/2023 16:51:51 5 text/html Generic HPI TemplateReported by PatientPatient is here for pruritus of the skin. She originally had some rash components and use steroid cream on it which did help however significant pruritus persists in areas of the extremities and thighs. There is nothing visible and no source of contact irritation. She needs some additional treatment. She is also due for updated labs OZZY Prince Attn: Accounting,[address] [place], [address], [facility] 06/10/2024 00:07:46 5 text/html HypertensionReported by PatientPatient is on low-dose lisinopril given by her resistor inspector. PalpitationsReported by PatientPalpitations noted more in the evening when it is quiet and she is less distracted some shortness of breath also and underlying mild chest discomfort. There is a mild cholesterol elevation in the LDL and an HDL that is too low. Exercise along with heart healthy diet and [place] 3 fish oil is suggested to boost to the good cholesterol closer to 50. For the LDL we would also encouraged continued diet and exercise modification before starting statin medication therapy. Fasting sugar, kidney and liver function is normal. Diabetes screening test is at 5.7% indicating the 1st stage of an increased risk of developing diabetes down the road. Magnesium pancreas enzymes and CBC blood counts are normal. Vitamin B12 and folate are normal and female hormone FSH is still in a normal non menopausal range. Fasting insulin is slightly elevated indicating some insulin resistance/early prediabetes risk. LH hormone level normal, serum cortisol in the morning is in a normal range not elevated. Progesterone and estradiol also normal. Those can be discussed further with the resistor inspector. Vitamin-D is normal OZZY Prince Attn: Accounting,[address] [place], [address], [facility] 12/06/2024 09:44:38 OBGyn Episode No OBEpisode recorded.
[2025-02-07 08:50] LABS: BEDSIDEPREGUCG Negative (Negative)
[2025-02-07 08:51] VITALS: BP 117/89; PULSE 90; RESP 18; TEMP 36.3; O2SAT 100
[2025-02-07 08:53] LABS: BEDSIDEPREGUCG Negative (Negative)
[2025-02-07] MEDS: LACTATED RINGERS 1,000 ML 150 ML IV CONT (09:08)
--- NOTE | 2025-02-07 09:14 | WPDANESEPPF ---
Anes - Initial Pre Proc Eval Procedure: Operation Date: 02/07/25 10:00 Proposed Procedures p Screening Colonoscopy - James Herrera MD Date/Time: 02/07/25 09:14 Surgeon: James Herrera MD Pre Op Diagnosis: Screening Patient Data Age: 45 Gender: F Height: 1.74 m Weight: 90.9 kg Last Vital Signs Temp 36.3 C L 02/07/25 08:51 Pulse 90 02/07/25 08:51 Resp 18 02/07/25 08:51 BP 117/89 02/07/25 08:51 Pulse Ox 100 02/07/25 08:51 O2 Del Method Room Air 02/07/25 08:51 Allergies Allergy/AdvReac Type Severity Reaction Status Date / Time latex Allergy Intermediate Rash Verified 02/07/25 08:50 tramadol Allergy Intermediate Itching Verified 02/07/25 08:50 codeine Allergy Mild Itching Verified 02/07/25 08:50 Home Medications ?Medication ?Instructions ?Recorded ?Confirmed ?Type lisinopril 10 1 tablet PO DAILY 01/28/25 01/28/25 History mg-hydrochlorothiazide 12.5 mg tablet Laboratory Tests 02/07/25 02/07/25 08:49 08:51 POC Urine HCG, Qual Negative Negative (Negative) (Negative) Patient hx anesthesia problems: none Family hx anesthesia problems: none Results Review: All pre-operative results and documents have been reviewed as part of the pre-operative evaluation. [facility] Past Medical History Medical History No active medical problems Surgical History Surgical History History of History of endometrial ablation History of tubal ligation Social History Social History Smoking packs per day: 0.5 Smoking cigarettes per day: 10.0 Years smoked: 6 Smoking pack-years: 3.00 Smoking status: Former smoker Tobacco type: cigarettes and e-cigarettes/vaping Substance use: never Living arrangements: with family Spiritual care concerns: No Anes - Eval Final PreProcedure Day of Procedure 02/07/25 09:14 Patient weight: overweight Heart: regular rate and rhythm Lungs: clear to auscultation Airway: Mallampati scale class II Neurological: alert and oriented Last oral intake: >/= 8 hours ASA classification: II Emergent: no Anesthetic plan: proceed Anesthesia type and monitoring: general GIVS and standard monitoring Results Review: All pre-operative results and documents have been reviewed as part of the pre-operative evaluation. Informed Consent: The patient's anesthetic plan and its attendant risks and benefits were discussed with the patient/family/POA. Questions were solicited and answers provided to the satisfaction of the patient/family/POA.
--- NOTE | 2025-02-07 09:39 | PM.IMHP ---
H&P: HPI History of Present Illness Date/Time: 02/07/25 09:39 Chief Complaint: Screening colonoscopy Narrative: This is the patient's first colonoscopy. There are no GI symptoms and there is no family history of colorectal cancer. Review of Systems Review of Systems: All systems reviewed & are unremarkable except as noted in HPI and below PMFSH Past Medical History Medical History No active medical problems Surgical History Surgical History History of History of endometrial ablation History of tubal ligation Social History Social History Smoking packs per day: 0.5 Smoking cigarettes per day: 10.0 Years smoked: 6 Smoking pack-years: 3.00 Smoking status: Former smoker Tobacco type: cigarettes and e-cigarettes/vaping Substance use: never Living arrangements: with family Spiritual care concerns: No Meds Home Medications and Allergies Home Medications ?Medication ?Instructions ?Recorded ?Confirmed ?Type lisinopril 10 1 tablet PO DAILY 01/28/25 01/28/25 History mg-hydrochlorothiazide 12.5 mg tablet Allergies Allergy/AdvReac Type Severity Reaction Status Date / Time latex Allergy Intermediate Rash Verified 02/07/25 08:50 tramadol Allergy Intermediate Itching Verified 02/07/25 08:50 codeine Allergy Mild Itching Verified 02/07/25 08:50 Vital Signs Vital Signs - 24 hr 02/07/25 08:51 Temperature 97.3 F L Pulse Rate 90 Respiratory Rate 18 Blood Pressure 117/89 Pulse Oximetry 100 Oxygen Delivery Room Air Exam Const: General: cooperative and healthy appearing Resp: Effort & Inspection: normal respiratory effort and able to speak in complete sentences Auscultation: clear to auscultation bilaterally Cardio: Rate: regular rate Rhythm: regular rhythm GI: Inspection: normal to inspection GI Palp: No No hepatosplenomegaly present Auscultation: normal bowel sounds Rectal Exam: deferred Skin: General skin exam: normal color Psych: Appearance: grossly normal Mental Status: mental status grossly normal Assessment and Plan Assessment and plan (1) Encounter for screening colonoscopy: Code(s): Z12.11 - Encounter for screening for malignant neoplasm of colon Status: Acute Assessment and Plan: The patient is deemed a good candidate for the procedure. Consent signed. Will proceed.
--- NOTE | 2025-02-07 10:05 | S_PTH ---
PATIENT: Nusrat Berman LOC: [facility] U#:[id number] AGE/SX: 45/F ROOM: RE02/07/[address]: James Herrera MD : 1980 BED: DIS: 02/07/2025 SPEC #: [id number] RECD: 02/07/25 11:05 STATUS: ANU RECara #: [id number] VANNA: 02/07/25 10:[address]: James Herrera DEPT: [facility] Surgical RECD BY: Nancy Block ENTERED: 02/07/25 11:05 SP TYPE: Surgical OTHR DR: Renata Cadet, PALinC Tissues: A - Polyp Procedures: Hematoxylin and Eosin Stain Gross and Microscopic Level 4
[2025-02-07 10:08] VITALS: BP 110/65; PULSE 72; RESP 20; O2SAT 96
[2025-02-07 10:18] VITALS: BP 109/69; PULSE 73; RESP 19; O2SAT 97
[2025-02-07 10:28] VITALS: BP 111/70; PULSE 63; RESP 18; O2SAT 100
== END 2025-02-07 10:36 | disposition home or self-care (01) ==
PROVIDERS: Anesthesiology; PCP Physician Assistant; Referring Provider Physician Assistant; Visit Provider Internal Medicine Gastroenterology
PROC: 0DJD8ZZ Inspection of Lower Intestinal Tract, Via Natural or Artificial Opening Endoscopic (ICD-10-PCS; CPT 45378; principal; 2025-02-07 10:00)
DX: Z12.11 Encounter for screening for malignant neoplasm of colon (principal); D12.0 Benign neoplasm of cecum; F17.210 Nicotine dependence, cigarettes, uncomplicated; F17.290 Nicotine dependence, other tobacco product, uncomplicated; Z98.890 Other specified postprocedural states; Z98.891 History of uterine scar from previous surgery; Z98.51 Tubal ligation status
CPT/HCPCS: 45385; 88305; J2704; J7120